=== PATIENT | female | born 1960 | race Caucasian/White ===

== ENCOUNTER 2017-01-16 11:16 | Inpatient (IN) ==
--- NOTE | 2017-01-16 11:28 | Emergency Department Note ---
Disposition Clinical Impression: Syncope due to orthostatic hypotension, Dehydration Chest pain Qualifiers: Chest pain type: unspecified Qualified Code(s): R07.9 - Chest pain, unspecified Disposition: Admitted As Inpatient Condition: Fair Referrals: Steph Garcia CNP [Primary Care Provider] - Time of Disposition: 14:19 Syncope HPI - General Chief Complaint: ED Syncope Stated Complaint: syncopal/hypotension Time Seen by Provider: 01/16/17 11:23 Source: patient Mode of arrival: EMS Limitations: no limitations Nursing Notes Reviewed: Yes Vital Signs Reviewed: Yes - History of Present Illness HPI Narrative: Patient is a 56-year-old female who presents to [facility] ED with chief complaint of low blood pressure, 2 syncopal episodes this morning as well as chest pain. She has had 5-6 episodes of vomiting this morning as well as 5 episodes of diarrhea. Denies any other sick contacts. No fevers or chills at home. No blood in the stool. Patient does complain of feeling lightheaded with standing. Patient was seen at [facility] to the urgent care where she was given a liter of fluids and remained hypotensive. She also took her blood pressure medications this morning Lisinopril 10mg as well. 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 Prodromal Symptoms: lightheaded, nausea/vomiting Witnessed: no Context: standing up Injuries Sustained Associated with Event: none Current Symptoms: none History: none Treatments prior to arrival: none Associated trauma secondary to event: No - Related Data Home Medications Medication Instructions Recorded Confirmed Meloxicam [Mobic] 02/08/16 Aspirin 81 mg PO DAILY 01/16/17 01/16/17 Atorvastatin [Lipitor] 10 mg PO HS 01/16/17 01/16/17 Isosorbide MONOnitrate (24 HR) 30 mg PO DAILY 01/16/17 01/16/17 [Imdur] Lisinopril [Zestril] 10 mg PO DAILY 01/16/17 01/16/17 Metoprolol [Lopressor] 25 mg PO BID 01/16/17 01/16/17 Allergies Allergy/AdvReac Type Severity Reaction Status Date / Time Iodinated Contrast Media - Allergy Hives Verified 01/16/17 14:14 Oral and Penicillins [PCN] Allergy Hives Verified 01/16/17 14:14 Sulfa (Sulfonamide Allergy See Verified 01/16/17 14:14 Antibiotics) Comments All systems ED: reviewed and negative except as stated. Past Medical History - Past Medical History Attestation: Yes The following information was validated with the patient. Source: patient Medical history: Reports: hyperlipidemia, hypertension - Social History Smoking Status: Current every day smoker Smokeless Tobacco Status: No Alcohol use: Reports: none Physical Exam - General Limitations: no limitations General appearance: alert, in no apparent distress - Head Head exam: atraumatic, normocephalic, normal inspection - Eye Eye exam: Present: normal appearance, PERRL, EOMI - ENT ENT exam: normal exam, normal oropharynx, mucous membranes moist - Neck Neck exam: Present: normal inspection, full ROM, trachea midline - Chest Chest inspection: Present: normal inspection, symmetric chest wall rise - Respiratory Respiratory exam: Present: normal lung sounds bilaterally - Cardiovascular Cardiovascular exam: Present: regular rate, normal rhythm, normal heart sounds - Abdominal Exam Abdominal exam: Present: soft, Non-Tender. Absent: tenderness, distention, guarding, rebound, rigidity - Extremities Exam Extremities exam: Present: normal inspection, full ROM. Absent: tenderness, pedal edema - Back Exam Back exam: Present: normal inspection, full ROM. Absent: tenderness - Neurological Exam Neurological exam: Present: alert, oriented X3 - Psychiatric Psychiatric exam: Present: normal affect, normal mood - Skin Skin exam: Present: warm, dry, intact, normal color Course Course Narrative: Patient seen and examined. Syncopal episode at 545 this morning after standing. She does not want to work and had a second syncopal episode. She also had an episode of chest pain in between the first and second syncopal episodes. Patient has also had multiple episodes of vomiting and diarrhea this morning. We will do orthostatic vital signs, given another liter fluid and cardiac workup. BP improved to 104 systolic from initial 70 systolic - Reevaluation(s) Reevaluation #1: Persistently hypotensive 80s/60s. 3rd L of IVF started. Spoke with hospitalist Dr. Lozano who accepted for admission. Time: 14:18 Vital Signs Temperature 97.8 F 01/16/17 11:19 Pulse Rate 64 01/16/17 11:19 Respiratory Rate 16 01/16/17 11:19 Blood Pressure 85/61 01/16/17 11:19 O2 Sat by Pulse Oximetry 100 01/16/17 11:19 Temperature 97.4 F L 01/16/17 14:04 Pulse Rate 61 01/16/17 14:04 Respiratory Rate 16 01/16/17 14:04 Blood Pressure 93/59 01/16/17 14:04 O2 Sat by Pulse Oximetry 99 01/16/17 14:04 Oxygen Delivery Oxygen Delivery Nasal Cannula Syncope - Medical Records Medical records reviewed: Yes I reviewed the patient's medical records. - Lab Data Lab results reviewed: Yes I reviewed the patient's lab results. Result diagrams: 01/16/17 11:43 01/16/17 11:43 Lab Results 01/16/17 01/16/17 01/16/17 Range/Units 11:43 11:43 11:43 WBC 11.8 H (4.3-11.1) K/mcL RBC 4.83 (3.82-4.97) M/mcL Hgb 14.4 (11.5-15.4) g/dL Hct 44.5 (35.3-44.9) % MCV 92.1 (83.0-100.0) fL MCH 29.8 (28.0-33.3) pg MCHC 32.4 (31.6-35.5) g/dL RDW 12.2 (11.5-14.5) % Plt Count 209 (140-400) K/mcL MPV 10.0 (9.4-12.4) fL Immature Gran % 0.3 (0-4) % Seg Neutrophils % 85.6 % Lymphocytes % 9.6 % Monocytes % 3.8 % Eosinophils % 0.2 % Basophils % 0.5 % Neutrophils # 10.1 H (1.6-8.9) K/mcL Lymphocytes # 1.1 (0.6-4.6) K/mcL Monocytes # 0.5 (0.0-1.3) K/mcL Eosinophils # 0.0 (0.0-0.6) K/mcL Basophils # 0.1 (0.0-0.2) K/mcL Sodium 139 (136-145) mEq/L Potassium 4.4 (3.5-4.5) mEq/L Chloride 111 H (98-109) mEq/L Carbon Dioxide 20 (19-29) mEq/L BUN 13 (7-20) mg/dL Creatinine 0.90 (0.57-1.11) mg/dL Est GFR ( Amer) > 60 (> 60) Est GFR (Non-Af Amer) > 60 (> 60) BUN/Creatinine Ratio 14 (6-26) Glucose 102 H (70-99) mg/dL Calculated Osmolality 288 (280-300) Calcium 8.8 (8.6-10.8) mg/dL Troponin I 0.01 (0-0.03) ng/mL - Radiology Data Radiology results reviewed: Yes I reviewed the patient's radiology results. - EKG Data EKG attestation: Yes I reviewed and interpreted this EKG. EKG results narrative: EKG done at 1129 shows normal sinus rhythm with a rate of 63 beats per minute. No acute ST elevation. There is some inverted T's waves in the anterior leads V1-V5
[2017-01-16] MEDS ORDERED: 0.9 % Sodium Chloride 1,000 ML IVC ONE ×2 (11:31→12:43)
--- NOTE | 2017-01-16 11:41 | Emergency Department Note ---
START Narrative - START START: I examined this patient and my medical decision-making was reviewed with the RESEARCH LEADER/PA/Advanced Practice Nurse/Resident Physician. I agree with the documented findings, disposition and treatment plan as described except to the extent set forth below. ED attending note: Patient seen with emergency medicine resident Dr. Rivas. Please see a copy of his note for details of the H&P, evaluation, management and disposition of this patient. We independently had [id number] contact with the patient Briefly: A 56-year-old female transferred from [facility]. Patient had a syncopal episode with resultant hypotension. Outpatient blood pressures come up after an IV fluid bolus. EKG done at [place] shows new T-wave inversions in the lateral leads. In consideration of the patient's presentation and history patient will get further workup and admission. We provided 45 minutes of critical care services this patient. Admission anticipated, patient stable.
[2017-01-16 11:50] LABS: Basophils # 0.1 K/mcL (0.0-0.2); Basophils % 0.5 %; Eosinophils % 0.2 %; Hematocrit 44.5 % (35.3-44.9); Hemoglobin 14.4 g/dL (11.5-15.4); Immature Granulocytes % 0.3 % (0-4); Lymphocytes # 1.1 K/mcL (0.6-4.6); Lymphocytes % 9.6 %; Mean Corpuscular HGB Conc 32.4 g/dL (31.6-35.5); Mean Corpuscular Hemoglobin 29.8 pg (28.0-33.3); Mean Corpuscular Volume 92.1 fL (83.0-100.0); Monocytes # 0.5 K/mcL (0.0-1.3); Monocytes % 3.8 %; Neutrophils # 10.1 K/mcL (1.6-8.9); Platelet Count 209 K/mcL (140-400); Red Blood Count 4.83 M/mcL (3.82-4.97); Red Cell Distribution Width 12.2 % (11.5-14.5); Segmented Neutrophils % 85.6 %
[2017-01-16 12:03] LABS: BUN/Creatinine Ratio 14 (6-26); Blood Urea Nitrogen 13 mg/dL (7-20); Calcium 8.8 mg/dL (8.6-10.8); Carbon Dioxide 20 mEq/L (19-29); Chloride 111 mEq/L (98-109); Glucose 102 mg/dL (70-99); Osmolality,Calculated 288 (280-300); Potassium 4.4 mEq/L (3.5-4.5); Sodium 139 mEq/L (136-145); eGFR For African Americans > 60 (> 60); eGFR For Non-African Americans > 60 (> 60)
[2017-01-16] MEDS ORDERED: Naloxone 0.4 MG/ML INJ IVP PRN (13:12)
[2017-01-16] MEDS ORDERED: Ondansetron 4 MG/2 ML VIAL IVP PRN (13:12)
--- NOTE | 2017-01-16 14:23 | Internal Med History&Physical ---
Date of Encounter: 01/16/17 Time of Encounter: 13:30 Assessment and Plan (1) Diarrhea Current visit: Yes Status: Acute likely viral gastroenteritis. WBC mildly elevated at 11.8. check c diff. Qualifiers: Diarrhea type: infectious Qualified Code(s): A09 - Infectious gastroenteritis and colitis, unspecified (2) Syncope Current visit: Yes Status: Acute secondary to hypotension from hypovolemia. IV fluids. Qualifiers: Syncope type: unspecified Qualified Code(s): R55 - Syncope and collapse (3) Hypotension Current visit: Yes Status: Acute secondary to GI losses from diarrhea and use of antihypertensive medication this morning. She woke up this morning at 3 AM because of loose stools, no blood. no abdominal pain. no fever. no urinary complaints. no chest pain. She continued to have diarrhea and developed some lightheadeness but still went to her job. She did take her dose of lisinopril 10 mg before leaving home. She went to [facility] urgent care and was found hypotensive SBP 80/40 and after receiving IL NS her BP was 77/34. She was transferred to our ED where her BP was 85/61. She received 2L NS and her current BP is 95/67. continue IV fluids. 1L 0.45%, then 75 ml.hr. check echocardiogram and serial troponin. Qualifiers: Hypotension type: other hypotension type Qualified Code(s): I95.89 - Other hypotension (4) Abnormal EKG Current visit: Yes Status: Acute EKG shows SR HR 63, TWI in V3-V6 (not present in EKG from March 2016). CXR shows no acute process. Echo from march 2016 shows LVEF 60%, moderate diastolic dysfunction, moderate MR. could be secondary to severe hypotension with transient cardiac ischemia. Patient had negative LHC in august 2016 at [place]. serial troponins. repeat EKG now. cardiac monitoring. check echocardiogram (5) Dehydration Current visit: Yes Status: Acute secondary to diarrhea. IV fluids. (6) HTN (hypertension) Current visit: Yes Status: Acute hold all home meds due to hypotension. Qualifiers: Hypertension type: essential hypertension Qualified Code(s): I10 - Essential (primary) hypertension (7) Tobacco abuse Current visit: No Status: Chronic counseled to quit. Internal Medicine - H&P: HPI Chief complaint: syncope this morning Admitted From: Home Plans for Post Hospital Care: Home History of present illness: Ms. Campbell Hall is a 56 year old female with past medical history of hypertension, CAD and hyperlipidemia. She woke up this morning at 3 AM because of loose stools, no blood. no abdominal pain. no fever. no urinary complaints. no chest pain. She continued to have diarrhea and developed some lightheadeness but still went to her job. She did take her dose of lisinopril 10 mg before leaving home. At her workplace, she had two syncopal episodes. Both times, her co- worker witnessed them. She lost consciousness for less than a minute. No post- confusion. After her second syncopal episode, she developed pre-cordial chest pressure. Since morning, she had at least 8 episodes of loose stools. no headache. She presented to [facility] urgent care and was found hypotensive SBP 80/40 and after receiving IL NS her BP was 77/34. She was transferred to our ED where her BP was 85/61. She received 2L NS and her current BP is 95/67. HR 60. Her only symptom now is lightheadedness. No chest pain. No palpitations. No abdominal pain. No nausea. no focal deficit. No bleeding. No urinary complaints. Patient is unclear why she takes so many medications. Past Med Surg Social Fam HX - Past Medical History Medical history: hyperlipidemia, hypertension - Social History Smoking Status: Current every day smoker Smokeless Tobacco Status: No Alcohol use: none Drug use: none - Family History Brother Hx Family Cardiac Disorders: Yes (htn, CAD) Internal Medicine - H&P: Meds Meloxicam [Mobic] 02/08/16 [History] MethylPREDNISolone [Medrol] 4 mg PO DAILY 6 Days 02/08/16 [Rx] Allergies Iodinated Contrast Media - Oral and Allergy (Verified 11/28/15 12:40) Hives Penicillins [PCN] Allergy (Verified 11/28/15 12:40) Hives Sulfa (Sulfonamide Antibiotics) Allergy (Verified 01/16/17 11:23) See Comments All Systems PM: A 10-system review of systems was performed and is negative for pertinent findings except as documented above in the HPI. - Constitutional Vitals: Temp Pulse Resp BP Pulse Ox 97.4 F L 61 16 93/59 99 01/16/17 14:04 01/16/17 14:04 01/16/17 14:04 01/16/17 14:04 01/16/17 14:04 General appearance: Present: cooperative, A&O X 3, pleasant, no acute distress, answers questions appropriately - Eye Eye exam: Present: PERRL, sclera anicteric - ENT ENT exam: Present: mucous membranes dry - Neck Neck exam general surgery: Present: supple, trachea midline. Absent: lymphadenopathy - Respiratory Respiratory exam: Present: CTAB - Cardiovascular Cardiovascular exam: Present: RRR - GI/Abdominal GI/Abdominal exam: Present: normal bowel sounds, soft. Absent: distended, tenderness - Extremities Exam Extremities exam: Absent: pedal edema - Back Exam Back exam: Absent: CVA tenderness (L), CVA tenderness (R) - Neurological Exam Neurological exam: Present: alert, oriented X3, strengths equal and symetr throughout. Absent: facial droop, speech deficit Internal Med - H&P Results - Labs CBC & Chem 7: 01/16/17 11:43 01/16/17 11:43
[2017-01-16] MEDS ORDERED: Magnesium Sulfate 1 GM in D5% in Water 100 ML IVPB ONE (19:47)
[2017-01-17] MEDS: Acetaminophen 325 MG TABLET PO PRN ×2 (00:25→16:14)
[2017-01-17 04:59] LABS: Basophils % 0.8 %; Eosinophils % 0.6 %; Hematocrit 35.8 % (35.3-44.9); Immature Granulocytes % 0.8 % (0-4); Lymphocytes # 1.4 K/mcL (0.6-4.6); Lymphocytes % 29.1 %; Mean Corpuscular HGB Conc 32.4 g/dL (31.6-35.5); Mean Corpuscular Hemoglobin 30.1 pg (28.0-33.3); Mean Corpuscular Volume 92.7 fL (83.0-100.0); Monocytes # 0.3 K/mcL (0.0-1.3); Monocytes % 5.5 %; Neutrophils # 3.1 K/mcL (1.6-8.9); Platelet Count 141 K/mcL (140-400); Red Blood Count 3.86 M/mcL (3.82-4.97); Red Cell Distribution Width 12.4 % (11.5-14.5); Segmented Neutrophils % 63.2 %
[2017-01-17 05:03] LABS: Hemoglobin 11.6 g/dL (11.5-15.4)
[2017-01-17 06:17] LABS: Alanine Aminotransferase 20 Units/L (0-55); Albumin 2.9 g/dL (3.5-5.0); Albumin/Globulin Ratio 1.3 (1.1-2.2); Alkaline Phosphatase 61 Units/L (38-126); Aspartate Amino Transferase 19 Units/L (5-34); BUN/Creatinine Ratio 14 (6-26); Bilirubin,Total 0.4 mg/dL (0.2-1.2); Blood Urea Nitrogen 12 mg/dL (7-20); Calcium 8.2 mg/dL (8.6-10.8); Carbon Dioxide 21 mEq/L (19-29); Chloride 111 mEq/L (98-109); Globulin 2.2 g/dL (2.4-3.5); Glucose 86 mg/dL (70-99); Magnesium 1.7 mg/dL (1.6-2.6); Osmolality,Calculated 287 (280-300); Phosphorous 3.3 mg/dL (2.3-4.7); Potassium 4.3 mEq/L (3.5-4.5); Sodium 139 mEq/L (136-145); Total Protein 5.1 g/dL (6.0-8.3); eGFR For African Americans > 60 (> 60); eGFR For Non-African Americans > 60 (> 60)
[2017-01-17] MEDS: Aspirin 81 MG TAB.CHEW PO SCH (08:09)
[2017-01-17] MEDS ORDERED: Ondansetron 4 MG/2 ML VIAL IVP PRN (08:12)
--- NOTE | 2017-01-17 08:18 | ECHO - Doppler Report ---
Echocardiogram Name: Rachana Coleman Date of Study: 01/16/2017 Date: 1960 Ht: 63.0 in Medical Record#: [id number] Age: 56 Wt: 129.0 lb Gender: Female BSA: 1.61 Order #: [id number] Location: [facility] Room #: [id number] Reading Physician: Unruly Boyd DO, FACClarissa, JACINTO TENORIO Medical Records Administrator: Beth Gay Ordering Physician: Cata Sparks MD Primary Physician: Steph Garcia NP Indications: Hypotension, TWI Impressions: LVEF 70%. Normal LV chamber size, wall thickness and function. Mild left ventricular diastolic dysfunction. Normal right ventricular structure and function. Borderline mild pulmonary hypertension. Estimated RVSP is 36 mmHg. No significant valvular dysfunction. Moderate MR described on prior report was not visualized on this study. Left Ventricular Wall Motion: Rest Echo Findings All wall segments showed normal motion. Findings: Study Quality * Technically adequate exam. ECG Findings * Normal sinus rhythm. Left Ventricle * LVEF 70%. * Normal LV chamber size, wall thickness and function. * Mild left ventricular diastolic dysfunction. Right Ventricle * Normal right ventricular structure and function. Left Atrium * Mildly dilated left atrium. Right Atrium * Normal right atrial size. Interatrial Septum * No evidence of PFO by color Doppler. Aortic Valve * Trileaflet aortic valve with normal function. * No aortic regurgitation. * No aortic stenosis. Mitral Valve * Mildly thickened mitral valve leaflets. * Trace mitral regurgitation. * No mitral stenosis. Tricuspid Valve * Normal tricuspid valve structure and function. * Trace tricuspid regurgitation. * Borderline mild pulmonary hypertension. * Estimated RVSP is 36 mmHg. * Estimated RA pressure is 5 mmHg. Pulmonic Valve * Normal pulmonic valve structure and function. * No pulmonic regurgitation. Aorta * Normally sized aortic root. Pericardium * The pericardium appears normal. IVC * Normal IVC dimensions and inspiratory collapse. Pulmonary Artery * Normal visualized portions of the main pulmonary artery. History Hypertension Hypercholesteremia History of Smoking Years 41 Packs 0.5 Family History of CAD 03/27/2016 a Previous Echo was performed. Measurements: BP: 103/ 68 2D Normal Values RVIDd: 2.00 cm <2.7 cm IVSd: .70 cm 0.6 - 1.0 cm LVIDd: 4.50 cm 3.7 - 5.6 cm LVPWd: .80 cm 0.6 - 1.1 cm LVIDs: 3.00 cm 1.5 - 3.6 cm AO: 2.70 cm < 4.0 cm LA: 3.00 cm 2.0 - 4.0cm %FS: 33.30 cm >25 % LA volume: 31 Mitral Valve Peak E:.94 m/sec Peak A:.94 m/sec E/A Ratio:1 Peak E' Lat Harrison:11.2 cm/s Peak E' Med Harrison:9.55 cm/s E/E' Lat Ratio:8.4 E/E' Med Ratio:9.9 Tricuspid Valve TV Regurg Peak Grad: 31.00mmHg TV Regurg Peak Harrison: 2.78m/sec Updated by Unruly Boyd DO, JENISE, COBY, JACINTO on 01/17/2017 8:14:10 AM electronically signed on 01/17/2017 8:14:25 AM with status of Final Wall Motion Joseph: 1=Normal, 2=Hypokinesis, 3=Akinesis, 4=Dyskinesis, 5=Aneurysmal, 6=Hyperkinetic, X=Not Visualized (Blank)=Missing
--- NOTE | 2017-01-17 09:51 | Internal Med Progress Note ---
Date of Encounter: 01/17/17 Time of Encounter: 08:45 - Assessment and plan (1) Diarrhea Current Visit: Yes Status: Acute Assessment and plan: Unclear etiology. Mild leukocytosis has resolved. In further discussion with the patient, patient stating she has 3-4 days every couple weeks for she has severe diarrhea. She states this is been occurring over the past couple months. Story more consistent with an IBS etiology then with infectious etiology but will rule out infectious causes. GI brought on board due to cyclical nature of the patient's symptoms. Chest x-ray negative, will obtain abdominal CT. ITS Impressions Chest X-Ray 01/16/17 11:30 IMPRESSION: No acute findings in the chest. D/ / Manuel Zavaleta MD / Manuel Zavaleta MD Interpreting Provider: Manuel Zavaleta MD Qualifiers: Diarrhea type: unspecified type Qualified Code(s): R19.7 - Diarrhea, unspecified (2) Syncope Current Visit: Yes Status: Acute Assessment and plan: Likely secondary to severe diarrhea and subsequent dehydration. Patient is stating she has bouts of 3-4 days worth of severe diarrhea that occur every week or 2 for the past several months. She states this is the first time she has ever passed out. Chest x-ray negative. Treating hypotension with IV fluids. Echocardiogram unremarkable. Qualifiers: Syncope type: unspecified Qualified Code(s): R55 - Syncope and collapse (3) Dehydration Current Visit: Yes Status: Acute (4) Hypomagnesemia Current Visit: Yes Status: Resolved (5) Hx of cholecystectomy Current Visit: Yes Status: Chronic Assessment and plan: in 1991 (6) Abnormal EKG Current Visit: Yes Status: Acute Assessment and plan: Echocardiogram unremarkable with ejection fraction of 70%. Patient denies chest pain or shortness of breath. Echocardiogram impressions: LVEF 70%. Normal LV chamber size, wall thickness and function. Mild left ventricular diastolic dysfunction. Normal right ventricular structure and function. Borderline mild pulmonary hypertension. Estimated RVSP is 36 mmHg. No significant valvular dysfunction. Moderate MR described on prior report was not visualized on this study. (7) HTN (hypertension) Current Visit: Yes Status: Chronic Assessment and plan: Inactive at this time, holding her antihypertensive medications. Holding lisinopril 10 mg daily, metoprolol 25 mg twice a day, Imdur 30 mg daily. Will add back once her blood pressure is more stabilized. Qualifiers: Hypertension type: essential hypertension Qualified Code(s): I10 - Essential (primary) hypertension (8) Hypotension Current Visit: Yes Status: Acute Assessment and plan: Stable, continue IV fluids. We will continue to monitor. Patient is alert and oriented 3. She was instructed on slow position changes. Qualifiers: Hypotension type: other hypotension type Qualified Code(s): I95.89 - Other hypotension (9) Tobacco abuse Current Visit: No Status: Chronic - Subjective Interval history: Patient seen and examined. On examination, patient is sitting upright in bed. Patient had eaten several bites of her breakfast. She is endorsing decreased by mouth intake. She denies nausea or vomiting. She denies pain at this time but states her abdomen is diffusely sore. She states that she is still having active diarrhea with several episodes since admission. - Constitutional Vitals: Temp Pulse Resp BP Pulse Ox 98.3 F 74 15 102/70 91 L 01/17/17 06:45 01/17/17 06:45 01/17/17 06:45 01/17/17 06:45 01/17/17 06:45 General appearance: Present: cooperative, A&O X 3, pleasant, no acute distress, answers questions appropriately - Head Head exam: Present: atraumatic, normocephalic - Eye Eye exam: Present: PERRL, conjuntiva pink, sclera anicteric Pupils: Present: PERRL - Neck Neck exam general surgery: Present: supple, trachea midline. Absent: lymphadenopathy - Respiratory Respiratory exam: Present: decreased breath sounds. Absent: accessory muscle use, rales, respiratory distress, rhonchi, wheezes - Cardiovascular Cardiovascular exam: Present: RRR, +S1, +S2. Absent: diastolic murmur, gallop, rubs, systolic murmur - GI/Abdominal GI/Abdominal exam: Present: distended, hyperactive bowel sounds, soft, tenderness (diffuse), no peritoneal signs - Extremities Exam Extremities exam: Present: warm, radial pulses palpable and symetrical. Absent : calf tenderness, cyanotic, pedal edema - Neurological Exam Neurological exam: Present: alert, CN II-XII intact, oriented X3, no focal deficits, strengths equal and symetr throughout. Absent: pronater drift, facial droop, speech deficit - Skin Skin exam: Present: dry, intact, pallor, warm Internal Medicine: Result - Labs CBC & Chem 7: 01/17/17 04:35 01/17/17 04:35 Labs: Short CBC 01/17/17 Range/Units 04:35 WBC 4.9 D (4.3-11.1) K/mcL Hgb 11.6 D (11.5-15.4) g/dL Hct 35.8 (35.3-44.9) % Plt Count 141 (140-400) K/mcL Neutrophils # 3.1 (1.6-8.9) K/mcL BMP 01/17/17 04:35 Sodium 139 Potassium 4.3 Chloride 111 H Carbon Dioxide 21 BUN 12 Creatinine 0.86 Glucose 86 Calcium 8.2 L Cardiac Enzymes 01/16/17 01/17/17 Range/Units 18:42 04:35 Troponin I 0.00 0.01 (0-0.03) ng/mL Liver Function 01/17/17 Range/Units 04:35 Total Bilirubin 0.4 (0.2-1.2) mg/dL AST 19 (5-34) Units/L ALT 20 (0-55) Units/L Alkaline Phosphatase 61 (38-126) Units/L Albumin 2.9 L (3.5-5.0) g/dL Consult Discharge Plan - Plan Referrals: Steph Garcia, HEALTH ANALYTICS CONSULTANT [Primary Care Provider] -
[2017-01-17] MEDS ORDERED: Hyoscyamine 0.5 MG/ML MLS IVP PRN (10:30)
[2017-01-17 11:33] LABS: Adenovirus F 40/41 PCR Not detected (Not detect); Astrovirus PCR Not detected (Not detect); C.difficile Toxin A/B by PCR Not detected (Not detect); Campylobacter by PCR Not detected (Not detect); Cryptosporidium by PCR Not detected (Not detect); Cyclospora cayetanensis PCR Not detected (Not detect); E. coli O157 by PCR Not detected (Not detect); Entamoeba histolytica PCR Not detected (Not detect); Enteroaggregative E.coli(EAEC) Not detected (Not detect); Enteropathogenic E.coli(EPEC) Not detected (Not detect); Enterotoxigenic E.coli (ETEC) Not detected (Not detect); Giardia lamblia PCR Not detected (Not detect); Norovirus GI/GII PCR Not detected (Not detect); Plesiomonas shigelloides PCR Not detected (Not detect); Rotavirus A PCR ***DETECTED*** (Not detect); Salmonella PCR Not detected (Not detect); Sapovirus PCR Not detected (Not detect); Shig/EnteroinvasiveE coli EIEC Not detected (Not detect); Shigalike tox-prod E coli STEC Not detected (Not detect); Vibrio PCR Not detected (Not detect); Vibrio cholerae PCR Not detected (Not detect); Yersinia enterocolitica PCR Not detected (Not detect)
--- NOTE | 2017-01-17 11:45 | Gastroenterology Consult Note ---
<Steffany Parada - Last Filed: 01/17/17 11:42> Date of Encounter: 01/17/17 Time of Encounter: 10:30 - Assessment and plan (1) Nausea & vomiting Current Visit: Yes Status: Chronic Assessment and plan: symptomatic management, OTPT EGD Qualifiers: Vomiting type: unspecified Vomiting Intractability: unspecified Qualified Code(s): R11.2 - Nausea with vomiting, unspecified (2) Dysphagia Current Visit: Yes Status: Acute Assessment and plan: OTPT EGD to evaluate. Continue PPI Qualifiers: Dysphagia type: other dysphagia Qualified Code(s): R13.19 - Other dysphagia (3) Diarrhea Current Visit: Yes Status: Chronic Assessment and plan: stool w/u. symptomatic care. OTPT Cscope. Qualifiers: Diarrhea type: unspecified type Qualified Code(s): R19.7 - Diarrhea, unspecified - Time Spent With Patient Total time spent is greater than 50% in coordination of care (as documented) at patient's floor/unit and/or counseling patient: less than 15 minutes GI History of Present Illness - Data of Consult Patient: new to practice Consult date: 01/17/17 Requesting Physician: Shellie Daniel - Consult Narrative Reason for consult: N/V/D History of present illness: Ms. Coleman is a 56 year old female with past medical history of hypertension, CAD and hyperlipidemia. She woke up this morning at 3 AM because of loose stools, no blood. no abdominal pain. no fever. no urinary complaints. no chest pain. She continued to have diarrhea and developed some lightheadeness but still went to her job. She did take her dose of lisinopril 10 mg before leaving home. At her workplace, she had two syncopal episodes. Both times, her co- worker witnessed them. She lost consciousness for less than a minute. No post- confusion. After her second syncopal episode, she developed pre-cordial chest pressure. Since morning, she had at least 8 episodes of loose stools. no headache. She presented to [facility] urgent care and was found hypotensive SBP 80/40 and after receiving IL NS her BP was 77/34. She was transferred to our ED where her BP was 85/61. She received 2L NS and her current BP is 95/67. HR 60. Her only symptom now is lightheadedness. Patient indicates that she has had cyclical N/V/D symptoms for 3-4 days two times monthly for many months preceding this hospitalization. She has some dysphagia with solids, particularly breads. Denies acid reflux symptoms. Symptoms are not necessarily associated with food. She can be awoken in the night with these symptoms, admits BRBPR on paper. Weight is stable, fluctuates. Denies family hx of CC. Colonoscopy: None EGD: None Past Med Surg Social Fam HX - Past Medical History Medical history: hyperlipidemia, hypertension - Social History Smoking Status: Current every day smoker Smokeless Tobacco Status: No Alcohol use: none Drug use: none - Family History Brother Hx Family Cardiac Disorders: Yes (pacemaker) - Gastrointestinal NSAID use: None Anticoagulation Use: None Number of BM Per Day: varies Gastrointestinal: Present: abdominal pain, diarrhea, nausea, vomiting - Constitutional Constitutional: anorexia - EENT Eyes: as per HPI Ears: Present: as per HPI Nose, mouth and throat: Present: dysphagia - Cardiovascular Cardiovascular ROS: Present: chest pain - Respiratory Respiratory IM: Present: cough - Neurological ROS Neurological GI: Present: dizziness - Hematologic/Lymphatic Hematologic/Lymphatic pediatric: Present: as per HPI - Musculoskeletal Musculoskeletal ROS GI: Present: as per HPI - Integumentary Integumentary GI: Present: as per HPI - Psychiatric ROS Psychiatric GI: Present: as per HPI - Endocrine Endocrine IM: Present: as per HPI - Constitutional Vitals: Temp Pulse Resp BP Pulse Ox 98.3 F 74 15 102/70 91 L 01/17/17 06:45 01/17/17 06:45 01/17/17 06:45 01/17/17 06:45 01/17/17 06:45 General appearance: Present: cooperative, A&O X 3, no acute distress, answers questions appropriately - Head Head exam: Present: atraumatic, normocephalic - Eye Eye exam: Present: normal appearance, sclera anicteric - ENT ENT exam: Present: mucous membranes moist - Neck Neck exam general surgery: Present: normal inspection, trachea midline - Respiratory Respiratory exam: Present: CTAB - Cardiovascular Cardiovascular exam: Present: RRR, +S1, +S2 - GI/Abdominal GI/Abdominal exam: Present: soft, tenderness, no peritoneal signs - Rectal Rectal exam: Present: deferred - Extremities Exam Extremities exam: Present: warm - Neurological Exam Neurological exam: Present: no focal deficits - Psychiatric Psychiatric exam: Present: normal affect, normal mood - Skin Skin exam: Present: dry, intact, normal color, warm Results - Labs CBC & Chem 7: 01/17/17 04:35 01/17/17 04:35 Labs: Last Result Calcium 8.2 mg/dL (8.6-10.8) L 01/17/17 04:35 Troponin I 0.01 ng/mL (0-0.03) 01/17/17 04:35 Entire Visit Hgb 11.6 g/dL (11.5-15.4) D 01/17/17 04:35 Hct 35.8 % (35.3-44.9) 01/17/17 04:35 Total Bilirubin 0.4 mg/dL (0.2-1.2) 01/17/17 04:35 AST 19 Units/L (5-34) 01/17/17 04:35 ALT 20 Units/L (0-55) 01/17/17 04:35 Consult Discharge Plan - Plan Referrals: Steph Garcia, CRAYON GRADER [Primary Care Provider] - <Radha Denise - Last Filed: 01/17/17 21:54> Date of Encounter: 01/17/17 - Time Spent With Patient Total time spent is greater than 50% in coordination of care (as documented) at patient's floor/unit and/or counseling patient: GI History of Present Illness - Data of Consult Requesting Physician: Shellie Daniel - Consult Narrative History of present illness: Ms. Coleman is a 56 year old female - Constitutional Vitals: Temp Pulse Resp BP Pulse Ox 99.8 F H 81 15 107/73 93 L 01/17/17 19:06 01/17/17 19:06 01/17/17 19:06 01/17/17 19:06 01/17/17 21:00 Results - Labs CBC & Chem 7: 01/17/17 04:35 01/17/17 04:35 Labs: Last Result Calcium 8.2 mg/dL (8.6-10.8) L 01/17/17 04:35 Troponin I 0.01 ng/mL (0-0.03) 01/17/17 04:35 Stool Occult Blood Positive (Negative) A 01/17/17 09:00 Entire Visit Hgb 11.6 g/dL (11.5-15.4) D 01/17/17 04:35 Hct 35.8 % (35.3-44.9) 01/17/17 04:35 Total Bilirubin 0.4 mg/dL (0.2-1.2) 01/17/17 04:35 AST 19 Units/L (5-34) 01/17/17 04:35 ALT 20 Units/L (0-55) 01/17/17 04:35 - Attending Attestation I examined this patient and my medical decision-making was reviewed with the MULTIPLE SPINDLE SCREW MACHINE OPERATOR/PA/Advanced Practice Nurse/Resident Physician. I agree with the documented findings, disposition and treatment plan as described except to the extent set forth below.
[2017-01-17] MEDS ORDERED: Metoclopramide 10 MG/2 ML VIAL IVP SCH (12:00)
--- NOTE | 2017-01-17 17:13 | Electrocardiograph Report ---
[address] [place] [address] Test Date: 2017-01-16 Pat Name: Rachana Coleman Department: 105 Room: 3B33 Gender: F Program Administrator: : 1960 Requested By: Cata Sparks Order Number: [id number] Reading MD: Vivi Gerber Measurements Intervals [place] Rate: 63 P: 66 TN: 151 QRS: 65 QRSD: 79 T: 125 QT: 401 QTc: 409 Interpretive Statements SINUS RHYTHM MODERATE T-WAVE ABNORMALITY, CONSIDER ANTERIOR ISCHEMIA Electronically Signed On 01-17-2017 17:11:13 EST by Vivi Gerber
--- NOTE | 2017-01-17 17:16 | Electrocardiograph Report ---
[address] [place], [place] [address] Test Date: 2017-01-16 Pat Name: Rachana Coleman Department: 113 Room: 3B33 Gender: F Intelligence Chief: : 1960 Requested By: Mattie Rivas Order Number: [id number] Reading MD: Vivi Gerber Measurements Intervals [place] Rate: 57 P: 64 FL: 157 QRS: 76 QRSD: 90 T: 133 QT: 451 QTc: 446 Interpretive Statements SINUS BRADYCARDIA MODERATE T-WAVE ABNORMALITY, CONSIDER ANTERIOR ISCHEMIA Electronically Signed On 01-17-2017 17:14:47 EST by Vivi Gerber
[2017-01-18] MEDS: Acetaminophen 325 MG TABLET PO PRN (03:25)
[2017-01-18 03:48] LABS: Basophils % 0.4 %; Eosinophils % 0.4 %; Hematocrit 38.4 % (35.3-44.9); Hemoglobin 12.9 g/dL (11.5-15.4); Immature Granulocytes % 0.2 % (0-4); Lymphocytes # 1.1 K/mcL (0.6-4.6); Lymphocytes % 24.1 %; Mean Corpuscular HGB Conc 33.6 g/dL (31.6-35.5); Mean Corpuscular Hemoglobin 30.4 pg (28.0-33.3); Mean Corpuscular Volume 90.6 fL (83.0-100.0); Mean Platelet Volume 10.2 fL (9.4-12.4); Monocytes # 0.4 K/mcL (0.0-1.3); Neutrophils # 3.1 K/mcL (1.6-8.9); Platelet Count 151 K/mcL (140-400); Red Blood Count 4.24 M/mcL (3.82-4.97); Segmented Neutrophils % 66.9 %
[2017-01-18 04:04] LABS: BUN/Creatinine Ratio 11 (6-26); Blood Urea Nitrogen 9 mg/dL (7-20); Calcium 8.4 mg/dL (8.6-10.8); Carbon Dioxide 20 mEq/L (19-29); Chloride 108 mEq/L (98-109); Glucose 82 mg/dL (70-99); Magnesium 1.4 mg/dL (1.6-2.6); Osmolality,Calculated 282 (280-300); Potassium 3.7 mEq/L (3.5-4.5); Sodium 137 mEq/L (136-145); eGFR For African Americans > 60 (> 60); eGFR For Non-African Americans > 60 (> 60)
--- NOTE | 2017-01-18 09:22 | Internal Med Progress Note ---
Date of Encounter: 01/18/17 Time of Encounter: 09:20 - Assessment and plan (1) Diarrhea Current Visit: Yes Status: Chronic Assessment and plan: Syncopal episode likely secondary to hypotension/severe dehydration due to acute diarrhea from acute infection with rotavirus Still having lots of watery diarrhea and mild hypotension Continue IV fluids and supportive care Chest X-Ray 01/16/17 11:30 IMPRESSION: No acute findings in the chest. D/ / Manuel Zavaleta MD / Manuel Zavaleta MD Interpreting Provider: Manuel Zavaleta MD May discharge in the morning if stable, as the patient's blood pressure was in the 70s prior to admission Qualifiers: Diarrhea type: unspecified type Qualified Code(s): R19.7 - Diarrhea, unspecified (2) Syncope Current Visit: Yes Status: Acute Assessment and plan: Likely secondary to severe diarrhea and subsequent dehydration. Patient is stating she has bouts of 3-4 days worth of severe diarrhea that occur every week or 2 for the past several months. She stated this was the first time she has ever passed out. Chest x-ray negative. Echocardiogram unremarkable. Qualifiers: Syncope type: unspecified Qualified Code(s): R55 - Syncope and collapse (3) Hypotension Current Visit: Yes Status: Acute Assessment and plan: Secondary to severe dehydration Stable, continue IV fluids. Qualifiers: Hypotension type: other hypotension type Qualified Code(s): I95.89 - Other hypotension (4) HTN (hypertension) Current Visit: Yes Status: Chronic Assessment and plan: Holding lisinopril 10 mg daily, Gypsy metoprolol 25 mg twice a day, Imdur 30 mg daily. Qualifiers: Hypertension type: essential hypertension Qualified Code(s): I10 - Essential (primary) hypertension (5) Hypomagnesemia Current Visit: Yes Status: Resolved Assessment and plan: Replete and recheck in the morning (6) Tobacco abuse Current Visit: No Status: Chronic Assessment and plan: Smoking cessation counseling given for 5 minutes. Nicotine patch offered - Time Spent With Patient Greater than 35 minutes - Subjective Interval history: Patient is to having watery diarrhea, mild cramping on and off. Denies any fevers, no chest pain, no shortness of breath. No dysuria no blood diarrhea. - Constitutional Vitals: Temp Pulse Resp BP Pulse Ox 98.8 F 68 17 94/60 91 L 01/18/17 07:40 01/18/17 07:40 01/18/17 07:40 01/18/17 07:40 01/18/17 07:40 General appearance: Present: cooperative, A&O X 3, pleasant, no acute distress, answers questions appropriately - Head Head exam: Present: atraumatic, normocephalic - Eye Eye exam: Present: PERRL, conjuntiva pink, sclera anicteric Pupils: Present: PERRL - Neck Neck exam general surgery: Present: supple, trachea midline. Absent: lymphadenopathy - Respiratory Respiratory exam: Present: CTAB. Absent: accessory muscle use, rales, rhonchi, wheezes - Cardiovascular Cardiovascular exam: Present: RRR, +S1, +S2. Absent: diastolic murmur, gallop, rubs, systolic murmur - GI/Abdominal GI/Abdominal exam: Present: hyperactive bowel sounds, soft, no peritoneal signs. Absent: distended, normal bowel sounds, tenderness - Extremities Exam Extremities exam: Present: warm, radial pulses palpable and symetrical. Absent : calf tenderness, cyanotic, pedal edema - Neurological Exam Neurological exam: Present: CN II-XII intact, oriented X3, no focal deficits. Absent: pronater drift, facial droop, speech deficit - Skin Skin exam: Present: dry, intact Internal Medicine: Result - Labs CBC & Chem 7: 01/18/17 03:11 01/18/17 03:11 Labs: Short CBC 01/18/17 Range/Units 03:11 WBC 4.7 (4.3-11.1) K/mcL Hgb 12.9 (11.5-15.4) g/dL Hct 38.4 (35.3-44.9) % Plt Count 151 (140-400) K/mcL Neutrophils # 3.1 (1.6-8.9) K/mcL BMP 01/18/17 03:11 Sodium 137 Potassium 3.7 Chloride 108 Carbon Dioxide 20 BUN 9 Creatinine 0.81 Glucose 82 Calcium 8.4 L - VTE Documentation of Mechanical Device: Intermittent pneumatic compression device Consult Discharge Plan - Plan Referrals: Steph Garcia, RIVET HOLE PUNCHER [Primary Care Provider] -
[2017-01-18] MEDS ORDERED: Nicotine 21 MG PATCH.TD24 TD SCH (09:30)
[2017-01-18] MEDS ORDERED: Isosorbide MONOnitrate (24 HR) 30 MG TAB.ER.24H PO SCH (09:30)
[2017-01-18] MEDS: Magnesium Oxide 400 MG TABLET PO SCH ×2 (09:32→21:51)
[2017-01-18] MEDS: Aspirin 81 MG TAB.CHEW PO SCH (09:32)
[2017-01-19 06:58] VITALS: BP 104/69
[2017-01-19 07:29] LABS: BUN/Creatinine Ratio 12 (6-26); Blood Urea Nitrogen 9 mg/dL (7-20); Carbon Dioxide 22 mEq/L (19-29); Chloride 107 mEq/L (98-109); Glucose 73 mg/dL (70-99); Magnesium 1.2 mg/dL (1.6-2.6); Osmolality,Calculated 283 (280-300); Potassium 3.5 mEq/L (3.5-4.5); Sodium 138 mEq/L (136-145); eGFR For African Americans > 60 (> 60); eGFR For Non-African Americans > 60 (> 60)
--- NOTE | 2017-01-19 07:50 | Discharge Summary ---
Date of Encounter: 01/19/17 Time of Encounter: 07:46 - Discharge Diagnosis (1) Diarrhea Priority: Primary Status: Chronic Comments: Syncopal episode likely secondary to hypotension/severe dehydration due to acute diarrhea from acute viral gastroenteritis/ infection with rotavirus Qualifiers: Diarrhea type: unspecified type Qualified Code(s): R19.7 - Diarrhea, unspecified (2) Syncope Priority: Primary Status: Acute Qualifiers: Syncope type: unspecified Qualified Code(s): R55 - Syncope and collapse (3) Hypotension Priority: Primary Status: Acute Qualifiers: Hypotension type: other hypotension type Qualified Code(s): I95.89 - Other hypotension (4) HTN (hypertension) Priority: Secondary Status: Chronic Qualifiers: Hypertension type: essential hypertension Qualified Code(s): I10 - Essential (primary) hypertension (5) Hypomagnesemia Priority: Secondary Status: Resolved (6) Tobacco abuse Priority: Secondary Status: Chronic - Discharge Medications Prescriptions: Ondansetron ODT [Zofran ODT] 4 mg SL Q4HR #30 tab.rapdis Magnesium Oxide [Mag-Ox] 400 mg PO DAILY 30 Days Home Medications: Meloxicam [Mobic] 15 mg PO DAILY 02/08/16 [History] Aspirin 81 mg PO DAILY 01/16/17 [History] Atorvastatin [Lipitor] 10 mg PO HS 01/16/17 [History] Isosorbide MONOnitrate (24 HR) [Imdur] 30 mg PO DAILY 01/16/17 [History] Lisinopril [Zestril] 10 mg PO DAILY 01/16/17 [History] Metoprolol [Lopressor] 25 mg PO BID 01/16/17 [History] Magnesium Oxide [Mag-Ox] 400 mg PO DAILY 30 Days 01/19/17 [Rx] Ondansetron ODT [Zofran ODT] 4 mg SL Q4HR #30 tab.rapdis 01/19/17 [Rx] Allergies/Adverse Reactions: Allergies Iodinated Contrast Media - Oral and Allergy (Verified 01/16/17 14:14) Hives Penicillins [PCN] Allergy (Verified 01/16/17 14:14) Hives Sulfa (Sulfonamide Antibiotics) Allergy (Verified 01/16/17 14:14) See Comments Date of admission: 01/17/17 15:09 Primary care physician: Steph Garcia CNP - Patient Status Disposition: Home, Self-Care Condition: Good Overall status at discharge: patient is progressing back to baseline - Discharge Instructions Follow Up With: Steph Garcia CNP [Primary Care Provider] - Additional Instructions: Follow with primary care physician within the next 7 days. Did not come back to work for the next 10 days or until symptoms have resolved and have discussed her return with her primary care physician. Continue magnesium oral once daily. Can use Zofran as needed for nausea. Quit smoking. Follow with GI within the next 3-4 weeks to schedule an endoscopy and a colonoscopy - Diet and Activity Activity: increase activity as tolerated Diet: low fat, low cholesterol (Low fat , low lactose) Hospital course: Ms. Coleman is a 56 year old female with past medical history of hypertension, CAD, irritable bowel syndrome and hyperlipidemia. Was complaining of loose stools, no blood, no urinary complaints, no chest pain. She continued to have diarrhea and developed some lightheadeness but still went to work. She did take her dose of lisinopril 10 mg before leaving home. At her workplace, she had two syncopal episodes. Both times, her co-worker witnessed them. She lost consciousness for less than a minute. After her second syncopal episode, she developed pre-cordial chest pressure. Since morning, she had at least 8 episodes of loose stools. She presented to [facility] urgent care and was found hypotensive SBP 80/40 and after receiving IL NS her BP was 77/34. She was transferred to our ED where her BP was 85/61. The patient was running fevers up to 101.7, she was found to be positive for rotavirus A. The patient was given IV fluids and her blood pressure medications were held including Lopressor, Imdur and lisinopril. Her magnesium was found to be low and was repleted, the patient is having less loose bowel movements, her blood pressure has been in the high 90s and low 100 100s but she says at baseline she has loose stools because of irritable bowel syndrome. Patient was evaluated by them GI service recommended an outpatient endoscopy and colonoscopy when her symptoms have improved. 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 Time spent discussing smoking cessation with patient: 3 to 10 minutes - Time Spent with Patient Total time spent providing and/or coordinating discharge services: Greater than 30 minutes (40 min) - Constitutional Vitals: Temp Pulse Resp BP Pulse Ox 98.5 F 71 16 104/69 92 L 01/19/17 06:53 01/19/17 06:53 01/19/17 06:53 01/19/17 06:53 01/19/17 06:53 General appearance: Present: cooperative, A&O X 3, pleasant, no acute distress, answers questions appropriately - Head Head exam: Present: atraumatic, normocephalic - Eye Eye exam: Present: PERRL, conjuntiva pink, sclera anicteric Pupils: Present: PERRL - Neck Neck exam general surgery: Present: supple, trachea midline. Absent: lymphadenopathy - Respiratory Respiratory exam: Present: CTAB. Absent: accessory muscle use, rales, rhonchi, wheezes - Cardiovascular Cardiovascular exam: Present: RRR, +S1, +S2. Absent: diastolic murmur, gallop, rubs, systolic murmur - GI/Abdominal GI/Abdominal exam: Present: normal bowel sounds, soft, no peritoneal signs. Absent: distended, tenderness - Extremities Exam Extremities exam: Present: warm, radial pulses palpable and symetrical. Absent : calf tenderness, cyanotic, pedal edema - Neurological Exam Neurological exam: Present: CN II-XII intact, oriented X3, no focal deficits. Absent: pronater drift, facial droop, speech deficit - Skin Skin exam: Present: dry, intact - VTE Documentation of Mechanical Device: Intermittent pneumatic compression device
== END 2017-01-19 09:15 | disposition home or self-care (01) | DRG 249 ==
LOC: 3BNU 11:16 → EMEROO 11:16 → 3BNU 13:34 → SUATTDRO 01-17 15:09
PROVIDERS: ADMIT Nurse Practitioner Family; ATTEND Internal Medicine

== ENCOUNTER 2018-05-19 13:16 | Observation (INO) ==
[2018-05-19] MEDS ORDERED: Naloxone 0.4 MG/ML INJ IVP PRN (14:10)
[2018-05-19] MEDS ORDERED: Acetaminophen 325 MG TABLET PO PRN (14:10)
[2018-05-19] MEDS ORDERED: Nitroglycerin 0.4 MG TAB.SUBL SL PRN (14:32)
--- NOTE | 2018-05-19 15:34 | Internal Med History&Physical ---
<Dustin Robb - Last Filed: 05/19/18 23:33> Date of Encounter: 05/19/18 Time of Encounter: 13:30 Internal Medicine - H&P: HPI Chief complaint: Chest pain Admitted From: Intrahospital Transfer Plans for Post Hospital Care: Home History of present illness: Ms. Coleman is a 57 year old female w/PMH of CAD, HLD, HTN, and current tobacco use presents from [place] [facility] w/CC of chest pain that began yesterday and resolved but returned this morning patient was at rest. Patient reports pinching sensation in the center of her chest that progressed to severe pressure with radiation to her back, left shoulder, neck. Sx lasted approx 15 minutes then lessened. Accompanied by SOB, diaphoresis, nausea, vomiting. Patient also reports fatigue for one month. Reports stress at home w/family and SO. Also reports suicidal ideations w/last 8 months ago when she planned on hanging herself. States she had heart cath at [facility] in August 2016 but no stents. Reports last stress test in 2014. Pt. reports left leg weakness and hx of falls but denies recent illness, fever, chills, changes in vision, unusual bleeding, palpitations, abdominal pain, diarrhea, constipation, numbness, tingling, dizziness, lightheadedness, pre-syncope, or syncope. Past Med Surg Social Fam HX - Past Medical History Source: patient, old records reviewed Medical history: coronary artery disease, hyperlipidemia, hypertension Additional medical history: Heart cath 09/15 Psychiatric history: anxiety, depression - Past Surgical History Surgical History: cholecystectomy, hysterectomy (Total) - Social History Smoking Status: Current every day smoker Packs per day: 6-8 menthols per day Smokeless Tobacco Status: No Alcohol use: none Drug use: none Occupational status: employed Current living situation: Home, With Family Activity Level: Independent ambulation (Has difficulty w/left leg weakness. Reports sometimes having to drag her foot/leg.) Recent Out of Country Travel Within the Last 8 Weeks: No Exposure or Possible Exposure to Illness During Travel: No - Family History Brother Race: Family Member Ethnicity: Non- Living Status: Age at : 75 Cause of : CVA Hx Family Cardiac Disorders: Yes (CAD) Mother Race: Family Member Ethnicity: Non- Living Status: Age at : 86 Cause of : M I Hx Family Cardiac Disorders: Yes ([place], Pacemaker) Father Race: Family Member Ethnicity: Non- Living Status: Age at : 65 Cause of : [place]/Pneumonia Hx Family Cardiac Disorders: Yes ([place], CAD) Sister Race: Family Member Ethnicity: Non- Living Status: Still Living Hx Family Cardiac Disorders: Yes (CAD, Pacemaker) Hx Family Cancer: Yes Internal Medicine - H&P: Meds Aspirin 81 mg PO DAILY 05/19/18 [History] Gabapentin [Neurontin] 400 mg PO TID 05/19/18 [History] 3 Allergy/AdvReac Type Severity Reaction Status Date / Time Iodinated Contrast- Oral and Allergy Hives Verified 05/01/17 13:14 IV Dye Penicillins [PCN] Allergy Hives Verified 05/01/17 13:14 Sulfa (Sulfonamide Allergy See Verified 05/01/17 13:14 Antibiotics) Comments All Systems PM: A 10-system review of systems was performed and is negative for pertinent findings except as documented above in the HPI. - Constitutional Constitutional: as per HPI, fatigue, falls, weakness, no chills, no fever(s), no night sweats - EENT Eyes: no change in vision, no discharge, no pain, no photophobia Ears: no ear discharge, no ear pain, no tinnitus Nose, mouth and throat: no dysphagia, no nasal discharge, no neck pain, no sore throat - Breasts Breasts: as per HPI - Cardiovascular Cardiovascular ROS IM: as per HPI, diaphoresis, dyspnea, dyspnea on exertion, no chest pain, no lightheadedness, no palpitations, no syncope - Respiratory Respiratory: as per HPI, dyspnea, dyspnea on exertion, no cough, no wheezing, no excessive phlegm production - Gastrointestinal Gastrointestinal: nausea, vomiting, no abdominal pain, no diarrhea, no hematemesis, no hematochezia, no melena - Genitourinary Genitourinary: no change in urinary stream, no dysuria, no flank pain, no hematuria Menstruation: as per HPI - Musculoskeletal Musculoskeletal ROS IM: as per HPI, no numbness, no tingling - Integumentary Integumentary IM: as per HPI, sores (Left lower arm), no rash, no unusual bruising - Neurological Neurological ROS: no confusion, no convulsions, no focal weakness, no numbness, no tingling, no tremor(s) - Psychiatric Psychiatric: as per HPI, anxiety, depression, suicidal ideation (8 months ago d/ t stress in life) - Endocrine Endocrine IM: as per HPI - Hematologic/Lymphatic Hematologic/Lymphatic: no easy bruising - Allergic/Immunologic Allergic/Immunologic: as per HPI - Constitutional Vitals: Temp Pulse Resp BP Pulse Ox 97.7 F 57 16 131/85 99 05/19/18 14:30 05/19/18 14:30 05/19/18 14:30 05/19/18 14:30 05/19/18 14:30 General appearance: Present: cooperative, mild distress, A&O X 3, pleasant, answers questions appropriately - Head Head exam: Present: atraumatic, normocephalic - Eye Eye exam: Present: PERRL, conjuntiva pink, sclera anicteric Pupils: Present: PERRL - ENT ENT exam: Present: normal exam - Neck Neck exam general surgery: Present: normal inspection, supple, trachea midline. Absent: lymphadenopathy - Respiratory Respiratory exam: Present: CTAB. Absent: accessory muscle use, rales, rhonchi, wheezes - Cardiovascular Cardiovascular exam: Present: RRR, +S1, +S2. Absent: diastolic murmur, gallop, rubs, systolic murmur - GI/Abdominal GI/Abdominal exam: Present: normal bowel sounds, soft, no peritoneal signs. Absent: distended, tenderness - Rectal Rectal exam: Present: deferred - Additional comments: exam deferred. - Extremities Exam Extremities exam: Present: warm, radial pulses palpable and symmetrical. Absent : calf tenderness, cyanotic, pedal edema - Back Exam Back exam: Present: normal inspection - Neurological Exam Neurological exam: Present: CN II-XII intact, oriented X3, no focal deficits. Absent: pronater drift, facial droop, speech deficit - Psychiatric Psychiatric exam: Present: anxious (D/T stress) Internal Med - H&P Results - Labs CBC & Chem 7: 05/19/18 18:27 05/19/18 18:27 - Diagnostic Studies Chest x-ray Additional comments: EXAMINATION: SINGLE XRAY VIEW OF THE CHEST 05/19/2018 10:32 am COMPARISON: 05/01/2017 HISTORY: ORDERING SYSTEM PROVIDED HISTORY: chest pain FINDINGS: The lungs are without acute focal process. There is no effusion or pneumothorax. The cardiomediastinal silhouette is stable. The osseous structures are stable. XR/XR chest 1V portable IMPRESSION: No acute process. D/ / Manuel Sargent MD / Manuel Sargent MD Interpreting Provider: Manuel Sargent MD - Assessment and plan (1) Chest pain Current Visit: Yes Status: Acute Assessment and plan: Acute chest pain and pressure that began yesterday, resolved, and returned this a.m. while at rest. Describes pain as centralized pain and pressure that began as pinching and then severe pressure with radiation to back, left shoulder, and neck. Sx lessened but are still present. Initial troponin <0.03. Will trend. Echocardiogram ordered. Stress test initially ordered but pt. is also receiving VQ scan to r/o PE so stress test cancelled (must wait three days). Continuous cardiac telemetry. Supplemental O2 w/titration and SpO2 monitoring. Aspirin. Nitro SL PRN. 80 mg Lipitor once. Zofran IVP for N/V. EKG today shows sinus bradycardia. Will consider Cardiology consult if troponin and/or echocardiogram results abnormal. Pt. is high risk for cardiac event based on current sx, familial hx of MIs and CVA; and current risk factors of HTN/HLD (w/o medications ), severe stress in her life, and current tobacco abuse. Pt. discussed w/Dr. Hendrickson who agrees w/plan of care. Observation. Qualifiers: Chest pain type: precordial pain Qualified Code(s): R07.2 - Precordial pain (2) Elevated d-dimer Current Visit: Yes Status: Acute Assessment and plan: Acutely elevated D-dimer on admission of 555. Pt. reports SOB and dyspnea. Denies hx of DVT or PE. Allergic to IV dye, so VQ scan ordered. Awaiting results. (3) Abnormal EKG Current Visit: Yes Status: Acute Assessment and plan: Acute abnormal EKG on admission. EKG performed at 09:13 today at [facility] demonstrated heart rate of 71, axis of 80, CA interval 150, and QT/QTC 378/97. Some T-wave inversions in V1 and V2 as well as in aVL. Not significantly changed from previous EKGs. EKG at [facility] at 15:11 shows sinus bradycardia. Continuous cardiac telemetry. (4) Nausea & vomiting Current Visit: Yes Status: Acute Assessment and plan: Acute nausea and vomiting accompanying CP sx. IVP Zofran 4 mg Q6HR PRN for N/V. Qualifiers: Vomiting type: unspecified Vomiting Intractability: unspecified Qualified Code(s): R11.2 - Nausea with vomiting, unspecified (5) History of suicidal ideation Current Visit: Yes Status: Chronic Assessment and plan: Hx of severe stress in life and previous suicidal ideation. Pt. reports 8 months ago she planned on hanging herself. Has hx of anxiety and depression. Pt. denies current SI/HI and has no plan to harm herself at the present time. Pt. is not currently treated for her anxiety and depression. Suicide precautions. Consult to Psychiatry ordered and discussed w/1A. Will add sitter if pt. begins to show signs of increasing anxiety, agitation, or depression. SW consult ordered to assist w/counseling placement. (6) HLD (hyperlipidemia) Current Visit: Yes Status: Chronic Assessment and plan: Hx of chronic HLD. Lipid panel in a.m. labs. Does not currently take statin. Consider adding Lipitor to home medications based on lipid panel results when available. Qualifiers: Hyperlipidemia type: pure hypercholesterolemia Qualified Code(s): E78.00 - Pure hypercholesterolemia, unspecified; E78.0 - Pure hypercholesterolemia (7) HTN (hypertension) Current Visit: Yes Status: Chronic Assessment and plan: Hx of chronic HTN. Monitor pt. and VS. Pt. does not currently take HTN medication. Hydralazine 10 mg Q6HR PRN ordered w/parameters. Qualifiers: Hypertension type: essential hypertension Qualified Code(s): I10 - Essential (primary) hypertension (8) CAD (coronary artery disease) Current Visit: Yes Status: Chronic Assessment and plan: Hx of chronic CAD. Heart cath in 2016 at [facility] w/o stents. Continue aspirin therapy. Hydralazine PRN w/parameters for HTN. Consider adding Lipitor to home medications based on lipid panel results when available. Qualifiers: Coronary Disease-Associated Artery/Lesion type: jamul artery [place] vs. transplanted heart: jamul heart Associated angina: angina presence unspecified Qualified Code(s): I25.10 - Atherosclerotic heart disease of jamul coronary artery without angina pectoris (9) Tobacco abuse Current Visit: Yes Status: Chronic Assessment and plan: Hx of chronic tobacco abuse. Currently smokes 6-8 cigarettes daily. Interested in quitting but has many stressors in her life currently. (10) DVT prophylaxis Current Visit: Yes Status: Acute Assessment and plan: Heparin 5,000 units SQ Q8HR for DVT prophylaxis. Monitor pt. for signs of bleeding. (11) Hx of fall Current Visit: Yes Status: Chronic Assessment and plan: Hx of falls d/t LLE weakness. Pt. reports that she has to drag her foot/leg to ambulate. Falls/safety precautions, up with assist, bed rest w/bathroom privileges w/assist only. PT/OT consults ordered. - Time Spent With Patient Total time spent is greater than 50% in coordination of care (as documented) at patient's floor/unit and/or counseling patient: Greater than 35 minutes <Chago Hendrickson - Last Filed: 05/20/18 19:33> Date of Encounter: 05/20/18 Internal Medicine - H&P: HPI History of present illness: Ms. Coleman is a 57 year old female All Systems PM: A 10-system review of systems was performed and is negative for pertinent findings except as documented above in the HPI. - Constitutional Vitals: Temp Pulse Resp BP Pulse Ox 98.0 F 51 18 122/71 100 05/20/18 16:13 05/20/18 16:13 05/20/18 16:13 05/20/18 16:13 05/20/18 16:13 Internal Med - H&P Results - Labs CBC & Chem 7: 05/20/18 04:46 05/20/18 04:46 Labs: Short CBC 05/20/18 Range/Units 04:46 WBC 6.6 (4.3-11.1) K/mcL Hgb 13.6 (11.5-15.4) g/dL Hct 40.6 (35.3-44.9) % Plt Count 189 (140-400) K/mcL Neutrophils # 3.6 (1.6-8.9) K/mcL BMP 05/20/18 04:46 Sodium 141 Potassium 4.2 Chloride 111 H Carbon Dioxide 26 BUN 15 Creatinine 0.76 Glucose 109 H Calcium 9.2 Cardiac Enzymes 05/19/18 Range/Units 22:06 Troponin I < 0.03 (< 0.04) ng/mL Liver Function 05/20/18 Range/Units 04:46 Total Bilirubin 0.5 (0.3-1.0) mg/dL AST 20 (13-39) Units/L ALT 23 (7-52) Units/L Alkaline Phosphatase 64 (34-104) Units/L Albumin 3.8 (3.5-5.7) g/dL - Impressions ITS Impressions Echocardiogram 05/19/18 14:18 Impressions: LVEF 55-60%. Normal LV chamber size, wall thickness and function. Normal left ventricular diastolic function. Normal right ventricular structure and function. Mild mitral regurgitation. No evidence of pulmonary hypertension. Left Ventricular Wall Motion: Rest Echo Findings All wall segments showed normal motion. Findings: Study Quality * Technically adequate exam. ECG Findings * Sinus bradycardia. Left Ventricle * LVEF 55-60%. * Normal LV chamber size, wall thickness and function. * Normal left ventricular diastolic function. Right Ventricle * Normal right ventricular structure and function. Left Atrium * Mildly dilated left atrium. Right Atrium * Normal right atrial size. Aortic Valve * Aortic valve not well visualized. * No aortic regurgitation. * No aortic stenosis. Mitral Valve * Normal mitral valve structure. * Mild mitral regurgitation. Tricuspid Valve * Normal tricuspid valve structure and function. * Trace tricuspid regurgitation. * No evidence of pulmonary hypertension. Pulmonic Valve * Normal pulmonic valve structure and function. * No pulmonic regurgitation. Aorta * Normally sized aortic root. Pericardium * The pericardium appears normal. IVC * Normal IVC dimensions and inspiratory collapse. Pulmonary Artery * Normal visualized portions of the main pulmonary artery. Pulmonary Perfusion Imaging 05/19/18 17:14 IMPRESSION: Low probability for pulmonary embolus. D/ / Graciela Lozano Cha, MD / Graciela Lozano Cha, MD Interpreting Provider: Graciela Lozano Cha, MD - Attending Attestation Discussed with KAIT and agree with assessment and plan as above Patient was walking the halls and was in no acute distress or shortness of breath Will rule out PE with VQ scan and rule out ACS with cardiac biomarkers - Assessment and plan (1) HTN (hypertension) Current Visit: Yes Status: Chronic Qualifiers: Hypertension type: essential hypertension Qualified Code(s): I10 - Essential (primary) hypertension (2) Tobacco abuse Current Visit: Yes Status: Chronic (3) Abnormal EKG Current Visit: Yes Status: Acute (4) Nausea & vomiting Current Visit: Yes Status: Acute Qualifiers: Vomiting type: unspecified Vomiting Intractability: unspecified Qualified Code(s): R11.2 - Nausea with vomiting, unspecified (5) Chest pain Current Visit: Yes Status: Inactive Qualifiers: Chest pain type: precordial pain Qualified Code(s): R07.2 - Precordial pain (6) Elevated d-dimer Current Visit: Yes Status: Inactive (7) CAD (coronary artery disease) Current Visit: Yes Status: Chronic Qualifiers: Coronary Disease-Associated Artery/Lesion type: jamul artery [place] vs. transplanted heart: jamul heart Associated angina: angina presence unspecified Qualified Code(s): I25.10 - Atherosclerotic heart disease of jamul coronary artery without angina pectoris (8) DVT prophylaxis Current Visit: Yes Status: Acute (9) HLD (hyperlipidemia) Current Visit: Yes Status: Chronic Qualifiers: Hyperlipidemia type: pure hypercholesterolemia Qualified Code(s): E78.00 - Pure hypercholesterolemia, unspecified; E78.0 - Pure hypercholesterolemia (10) History of suicidal ideation Current Visit: Yes Status: Chronic (11) Hx of fall Current Visit: Yes Status: Chronic - Time Spent With Patient Total time spent is greater than 50% in coordination of care (as documented) at patient's floor/unit and/or counseling patient:
[2018-05-19] MEDS ORDERED: Ondansetron 4 MG/2 ML VIAL IVP PRN (16:03)
[2018-05-19] MEDS: Aspirin Enteric Coated 81 MG Tablet PO SCH (16:31)
[2018-05-19 18:47] LABS: Basophils # 0.1 K/mcL (0.0-0.2); Basophils % 0.7 %; Eosinophils # 0.2 K/mcL (0.0-0.6); Eosinophils % 1.7 %; Hematocrit 40.4 % (35.3-44.9); Hemoglobin 13.6 g/dL (11.5-15.4); Immature Granulocytes % 0.3 % (0-4); Lymphocytes # 3.3 K/mcL (0.6-4.6); Lymphocytes % 37.5 %; Mean Corpuscular HGB Conc 33.7 g/dL (31.6-35.5); Mean Corpuscular Hemoglobin 31.1 pg (28.0-33.3); Mean Corpuscular Volume 92.4 fL (83.0-100.0); Mean Platelet Volume 10.4 fL (9.4-12.4); Monocytes # 0.5 K/mcL (0.0-1.3); Monocytes % 5.9 %; Neutrophils # 4.7 K/mcL (1.6-8.9); Platelet Count 190 K/mcL (140-400); Red Blood Count 4.37 M/mcL (3.82-4.97); Red Cell Distribution Width 12.6 % (11.5-14.5); Segmented Neutrophils % 53.9 %
[2018-05-19 19:09] LABS: Alanine Aminotransferase 26 Units/L (7-52); Albumin 4.1 g/dL (3.5-5.7); Albumin/Globulin Ratio 1.9 (1.1-2.2); Alkaline Phosphatase 71 Units/L (34-104); Aspartate Amino Transferase 26 Units/L (13-39); BUN/Creatinine Ratio 19 (6-26); Bilirubin,Total 0.5 mg/dL (0.3-1.0); Blood Urea Nitrogen 14 mg/dL (6-20); Calcium 9.3 mg/dL (8.6-10.3); Carbon Dioxide 27 mEq/L (23-29); Chloride 108 mEq/L (98-107); Globulin 2.2 g/dL (2.4-3.5); Glucose 120 mg/dL (70-105); Osmolality,Calculated 290 (280-300); Potassium 3.6 mEq/L (3.5-5.1); Sodium 139 mEq/L (136-145); Total Protein 6.3 g/dL (6.4-8.9); eGFR For African Americans > 60 (> 60); eGFR For Non-African Americans > 60 (> 60)
--- NOTE | 2018-05-19 19:33 | Consult Note ---
Date of Encounter: 05/19/18 Time of Encounter: 19:20 Assessment & Recommendation (1) Depression Current visit: Yes Status: Acute Qualifiers: Depression Type: major depressive disorder Major depression recurrence: recurrent Psychotic features: without psychotic features Qualified Code(s): F33.2 - Major depressive disorder, recurrent severe without psychotic features History of Present Illness Patient: new to practice Requesting Physician: Chago Hendrickson History of present illness: 57-year-old female x3 x3 with 5 children, seen via consultation psychiatry for exacerbation of mood. Pt noted "I have been a little down lately but nothing too bad.....I just miss my grandbabies. Pt was in agreement to start sertaline 50 mg PO QAM for mood, pt was educated on the risks benefits and side effects of current medications, including no medications. Pt noted she felt safe and comfortable on the unit. Pt was in agreement with treatment plan. Pt noted that she is doing alright today. Pt noted she slept 4-5 hours last night. Pt noted her appetite is reduced. Pt rated her depression a 7, on a scale of zero to ten with ten being the worst and zero being none. Pt rate her anxiety a 0, on the same scale. Pt denied any current visual or auditory hallucinations. Pt denied any thoughts to harm herself or anyone else. Pt denied any inpt psychiatric hospitalizations. Pt denied any previous suicide attempts. Pt denied any family psych history. PT agreed to start sertraline 50 mg for mood. Pt was educated on the risks benefits and side-effects of these medications including no medication, pt was in agreement. Ptdenied any hx of HEP C, HIV, TBI, or Seizures. Tobacco: 8 cigs per day Alcohol: Denies Street: Denies. Caffeine: 2-3 per day 1.Interval hx 2.Continue current medications 3.Review current labs 4.Pt had an opportunity to ask questions and discuss current treatment plan. 5.Supportive therapy was provided 6.Pt encouraged to consider group or individual therapy 7.Pt was in agreement with treatment plan. 8.Pt was educated on the risks benefits and side effects of current medications. 9. PT agreed to start sertraline 50 mg for mood. Pt was educated on the risks benefits and side-effects of these medications including no medication, pt was in agreement. 10. Pt cleared via psychiatry for D/C home. 11. Coordinate Mental health follow up prior to D/C home. CC: Chago Hendrickson Past Med Surg Social Fam HX - Past Medical History Medical history: coronary artery disease, hyperlipidemia, hypertension - Past Psychiatric History Psychiatric history: Reports: depression Family psychiatric history: No Family History of Suicide: None - Past Surgical History Surgical History: cholecystectomy, hysterectomy (Total) - Social History Smoking Status: Current every day smoker Smokeless Tobacco Status: No Alcohol use: none Drug use: none - Family History Brother Race: Family Member Ethnicity: Non- Living Status: Age at : 75 Cause of : CVA Hx Family Cardiac Disorders: Yes (CAD) Mother Race: Family Member Ethnicity: Non- Living Status: Age at : 86 Cause of : M I Hx Family Cardiac Disorders: Yes ([place], Pacemaker) Father Race: Family Member Ethnicity: Non- Living Status: Age at : 65 Cause of : [place]/Pneumonia Hx Family Cardiac Disorders: Yes ([place], CAD) Sister Race: Family Member Ethnicity: Non- Living Status: Still Living Hx Family Cardiac Disorders: Yes (CAD, Pacemaker) Hx Family Cancer: Yes Medications & Allergies Meloxicam 7.5 mg PO DAILY #10 tablet 05/01/17 [Rx] Aspirin 81 mg PO DAILY 05/19/18 [History] Gabapentin [Neurontin] 400 mg PO TID 05/19/18 [History] 3 Allergy/AdvReac Type Severity Reaction Status Date / Time Iodinated Contrast- Oral and Allergy Hives Verified 05/01/17 13:14 IV Dye Penicillins [PCN] Allergy Hives Verified 05/01/17 13:14 Sulfa (Sulfonamide Allergy See Verified 05/01/17 13:14 Antibiotics) Comments Review of Systems Constitutional: Denies: fever, chills, weakness, weight change Eyes: Denies: eye pain, vision change Ears, Nose, Throat: Denies: ear pain, throat pain, dental pain, hearing loss, congestion Cardiovascular: Denies: chest pain, palpitations, dyspnea on exertion Respiratory: Denies: cough, dyspnea, wheezes Gastrointestinal: Denies: abdominal pain, nausea, vomiting, diarrhea, constipation Genitourinary female: Denies: urgency, dysuria, frequency, abnormal menses, dyspareunia Musculoskeletal: Denies: joint swelling, joint pain Integumentary: Denies: rash, lesions, pruritus Neurological: Denies: headache, weakness, numbness, memory loss Psychiatric: Reports: depression, abnormal sleep pattern Endocrine: Denies: fatigue, heat or cold intolerance Hematologic/Lymphatic: Denies: easy bruising, lymphadenopathy Allergic/Immunologic: Denies: urticaria, itchy eyes Psychiatry Exam - Constitutional Vitals: Temp Pulse Resp BP Pulse Ox 97.7 F 57 16 131/85 99 05/19/18 14:30 05/19/18 14:30 05/19/18 14:30 05/19/18 14:30 05/19/18 14:30 General appearance: age & developmentally appropriate, well-groomed, well- nourished - Musculoskeletal Gait: normal Station: relaxed Strength & Tone: normal for patient - Psychiatric Patient Orientation: Yes Person, Yes Time, Yes Place Level of alertness: Alert Behavior: calm, cooperative Psychomotor activity: Normal Eye Contact: Maintains Eye Contact Mood Description: Euthymic/stable Affect description: congruent with mood, full range Speech Volume: Normal Speech pattern: normal rate, normal rhythm, normal tone, fluent, spontaneous Language & Vocabulary: consistent with education Thought Process: Linear, Goal Oriented Thought Content: No Suicidal ideation, No Homicidal ideation, No Overt delusions Perceptual Disturbances: No Auditory hallucinations, No Visual hallucinations Attention Span Ability: Capable of Focused Attention Memory Description: Grossly Intact Patient Reliability: Reliable Historian Fund of knowledge: Yes abstraction ability, Yes aware of current events Intelligence Estimate: Average Judgment: Limited Insight: Partial Results - Labs Labs: Laboratory Last Values WBC 8.8 K/mcL (4.3-11.1) 05/19/18 18:27 RBC 4.37 M/mcL (3.82-4.97) 05/19/18 18:27 Hgb 13.6 g/dL (11.5-15.4) 05/19/18 18: Hct 40.4 % (35.3-44.9) 05/19/18 18: MCV 92.4 fL (83.0-100.0) 05/19/18 18:27 MCH 31.1 pg (28.0-33.3) 05/19/18 18: MCHC 33.7 g/dL (31.6-35.5) 05/19/18 18: RDW 12.6 % (11.5-14.5) 05/19/18 18: Plt Count 190 K/mcL (140-400) 05/19/18 18: MPV 10.4 fL (9.4-12.4) 05/19/18 18: Immature Gran % 0.3 % (0-4) 05/19/18 18: Seg Neutrophils % 53.9 % 05/19/18 18: Lymphocytes % 37.5 % 05/19/18 18: Monocytes % 5.9 % 05/19/18 18: Eosinophils % 1.7 % 05/19/18 18: Basophils % 0.7 % 05/19/18 18: Neutrophils # 4.7 K/mcL (1.6-8.9) 05/19/18: Lymphocytes # 3.3 K/mcL (0.6-4.6) 05/19/18 18: Monocytes # 0.5 K/mcL (0.0-1.3) 05/19/18 18: Eosinophils # 0.2 K/mcL (0.0-0.6) 05/19/18 18: Basophils # 0.1 K/mcL (0.0-0.2) 05/19/18 18: Sodium 139 mEq/L (136-145) 05/19/18 18: Potassium 3.6 mEq/L (3.5-5.1) 05/19/18 18: Chloride 108 mEq/L (98-107) H 05/19/18 18: Carbon Dioxide 27 mEq/L (23-29) 05/19/18 18: BUN 14 mg/dL (6-20) 05/19/18 18: Creatinine 0.72 mg/dL (0.60-1.20) 05/19/18 18: Est GFR ( Amer) > 60 (> 60) 05/19/18 18: Est GFR (Non-Af Amer) > 60 (> 60) 05/19/18 18: BUN/Creatinine Ratio 19 (6-26) 05/19/18 18: Glucose 120 mg/dL (70-105) H 05/19/18 18: Calculated Osmolality 290 (280-300) 05/19/18: Calcium 9.3 mg/dL (8.6-10.3) 05/19/18 18:27 Total Bilirubin 0.5 mg/dL (0.3-1.0) 05/19/18 18:27 AST 26 Units/L (13-39) 05/19/18 18:27 ALT 26 Units/L (7-52) 05/19/18 18:27 Alkaline Phosphatase 71 Units/L (34-104) 05/19/18 18:27 Troponin I < 0.03 ng/mL (< 0.04) 05/19/18 16:30 Serum Total Protein 6.3 g/dL (6.4-8.9) L 05/19/18 18:27 Albumin 4.1 g/dL (3.5-5.7) 05/19/18 18:27 Globulin 2.2 g/dL (2.4-3.5) L 05/19/18 18:27 Albumin/Globulin Ratio 1.9 (1.1-2.2) 05/19/18 18:27 Consult Discharge Plan - Plan Additional Instructions: Pt cleared via psychiatry for D/C home. Coordinate Mental health follow up prior to D/C home. Referrals: Steph Garcia, [facility] [Primary Care Provider] -
[2018-05-19] MEDS: *HR* Heparin 5,000 UNIT/ML VIAL SQ SCH (20:58)
[2018-05-20] MEDS: *HR* Heparin 5,000 UNIT/ML VIAL SQ SCH ×3 (05:08→20:13)
[2018-05-20 05:25] LABS: Basophils # 0.1 K/mcL (0.0-0.2); Basophils % 0.8 %; Eosinophils # 0.2 K/mcL (0.0-0.6); Eosinophils % 2.7 %; Hematocrit 40.6 % (35.3-44.9); Hemoglobin 13.6 g/dL (11.5-15.4); Immature Granulocytes % 0.6 % (0-4); Immature Platelets 5.6 % (1.1-6.1); Lymphocytes # 2.2 K/mcL (0.6-4.6); Lymphocytes % 33.5 %; Mean Corpuscular HGB Conc 33.5 g/dL (31.6-35.5); Mean Corpuscular Hemoglobin 31.5 pg (28.0-33.3); Mean Platelet Volume 10.5 fL (9.4-12.4); Monocytes # 0.5 K/mcL (0.0-1.3); Monocytes % 7.3 %; Neutrophils # 3.6 K/mcL (1.6-8.9); Platelet Count 189 K/mcL (140-400); Red Blood Count 4.32 M/mcL (3.82-4.97); Red Cell Distribution Width 12.5 % (11.5-14.5); Segmented Neutrophils % 55.1 %
[2018-05-20 05:38] LABS: Alanine Aminotransferase 23 Units/L (7-52); Albumin 3.8 g/dL (3.5-5.7); Albumin/Globulin Ratio 1.7 (1.1-2.2); Alkaline Phosphatase 64 Units/L (34-104); Aspartate Amino Transferase 20 Units/L (13-39); BUN/Creatinine Ratio 20 (6-26); Bilirubin,Total 0.5 mg/dL (0.3-1.0); Blood Urea Nitrogen 15 mg/dL (6-20); Calcium 9.2 mg/dL (8.6-10.3); Carbon Dioxide 26 mEq/L (23-29); Chloride 111 mEq/L (98-107); Chol/HDL Ratio 4.2 (0-4.9); Cholesterol 186 mg/dL (< 200); Globulin 2.3 g/dL (2.4-3.5); Glucose 109 mg/dL (70-105); HDL Cholesterol 44 mg/dL (40-59); LDL Cholesterol,Calculated 115 mg/dL (0-99); Magnesium 1.9 mg/dL (1.6-2.6); Osmolality,Calculated 293 (280-300); Potassium 4.2 mEq/L (3.5-5.1); Sodium 141 mEq/L (136-145); Total Protein 6.1 g/dL (6.4-8.9); Triglycerides 135 mg/dL (< 150); eGFR For African Americans > 60 (> 60); eGFR For Non-African Americans > 60 (> 60)
[2018-05-20 08:38] LABS: Estimated Average Glucose 114 mg/dl; Hemoglobin A1C 5.6 %
[2018-05-20] MEDS: Nicotine 14 MG PATCH.TD24 TD SCH (09:04)
[2018-05-20] MEDS: Aspirin Enteric Coated 81 MG Tablet PO SCH (09:04)
[2018-05-20] MEDS: *HR* HYDROcodone/Acet 5/325 mg TABLET PO PRN (09:11)
--- NOTE | 2018-05-20 12:29 | Electrocardiograph Report ---
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
--- NOTE | 2018-05-20 12:29 | Electrocardiograph Report ---
[address] [place], [place] [address] Test Date: 2018-05-19 Pat Name: Rachana Coleman Department: 113 Room: 3B44 Gender: F Center Director: : 1960 Requested By: [id number] Order Number: [id number] Reading MD: Jose Gutiérrez Measurements Intervals [place] Rate: 55 P: 72 RI: 166 QRS: 65 QRSD: 88 T: 61 QT: 414 QTc: 402 Interpretive Statements SINUS BRADYCARDIA Electronically Signed On 05-20-2018 12:28:10 EDT by Jose Gutiérrez
--- NOTE | 2018-05-20 16:27 | Internal Med Progress Note ---
Date of Encounter: 05/20/18 Time of Encounter: 10:50 - Assessment and plan (1) HTN (hypertension) Current Visit: Yes Status: Chronic Assessment and plan: Chronic. Per subjective history. No home medications. Hydralazine PRN. Qualifiers: Hypertension type: essential hypertension Qualified Code(s): I10 - Essential (primary) hypertension (2) Tobacco abuse Current Visit: Yes Status: Chronic Assessment and plan: Chronic. Pt reports that she is trying to quit. Nicotine patch ordered prn. (3) Abnormal EKG Current Visit: Yes Status: Acute Assessment and plan: Acute abnormal EKG on admission. EKG performed at 09:13 today at [place] [facility] demonstrated heart rate of 71, axis of 80, [place] interval 150, and QT/QTC 378/97. Some T-wave inversions in V1 and V2 as well as in aVL. Not significantly changed from previous EKGs. EKG at [facility] at 15:11 shows sinus bradycardia. Continuous cardiac telemetry. 05/20/18-Repeat EKG in a.m. Troponins negative, suspect that this may be GI in nature. TTE showed LVEF of 55-60%, mild MR and normal wall segment motion. Patient had stress test in October, showed a gated EF 63% was negative for ischemia or infarct. Observe overnight. Continue telemetry. (4) Nausea & vomiting Current Visit: Yes Status: Acute Assessment and plan: Nausea and vomiting with associated epigastric pain, radiation to back. Patient reports nausea and substernal at epigastric chest pain with bending for the last several months. GI cocktail is ordered, omeprazole for morning. Patient also has order for Zofran 4 mg IV every 6 hours as needed for nausea and vomiting. Qualifiers: Vomiting type: unspecified Vomiting Intractability: unspecified Qualified Code(s): R11.2 - Nausea with vomiting, unspecified (5) Chest pain Current Visit: Yes Status: Inactive Assessment and plan: Plan as above. Patient had VQ scan for elevated d-dimer on admission and will not be able to have nuclear stress test for 3 days after. Patient states that she is physically unable to complete an exercise stress test. We will consult cardiology in the morning if further EKG changes or unresolved chest pain. Qualifiers: Chest pain type: precordial pain Qualified Code(s): R07.2 - Precordial pain (6) Elevated d-dimer Current Visit: Yes Status: Inactive Assessment and plan: Elevated d-dimer on admission. Patient reports short of breath, dyspnea, nausea , vomiting. Patient is allergic to IVP dye, VQ scan ordered, completed, low probability for PE. (7) CAD (coronary artery disease) Current Visit: Yes Status: Chronic Assessment and plan: Chronic. Patient reports LHC at [facility] in 2016 without any intervention. Continue ASA. Pt is on no other medications. Lipid panel WNL, no statin required. Continue prn Hydralazine Qualifiers: Coronary Disease-Associated Artery/Lesion type: [place] artery [place] vs. transplanted heart: [place] heart Associated angina: angina presence unspecified Qualified Code(s): I25.10 - Atherosclerotic heart disease of [place] coronary artery without angina pectoris (8) DVT prophylaxis Current Visit: Yes Status: Acute Assessment and plan: Heparin TID. (9) HLD (hyperlipidemia) Current Visit: Yes Status: Chronic Assessment and plan: LIpid panel WNL, no statin required. Qualifiers: Hyperlipidemia type: pure hypercholesterolemia Qualified Code(s): E78.00 - Pure hypercholesterolemia, unspecified; E78.0 - Pure hypercholesterolemia (10) History of suicidal ideation Current Visit: Yes Status: Chronic Assessment and plan: Pt denies SI/HI. She has been evaluated by psychiatrist. Has agreed to start Sertraline 50mg po daily. Continue medication and follow up with mental health professional after discharge. (11) Hx of fall Current Visit: Yes Status: Chronic Assessment and plan: Hx of falls d/t LLE weakness. Pt. reports that she has to drag her foot/leg to ambulate. Falls/safety precautions, up with assist, bed rest w/bathroom privileges w/assist only. PT/OT consults completed and patient has no acute skilled PT needs - Time Spent With Patient Total time spent is greater than 50% in coordination of care (as documented) at patient's floor/unit and/or counseling patient: less than 15 minutes - Subjective Interval history: Pt was seen and assessed at bedside at 1050. Pt reports that she has recently had decreased appetite, epigastric pain with radiation to back, nausea and vomiting. She states that she has had substernal and epigastric pain with bending for "several months." She denies any SI or HI, but has been depressed recently. Denies SOB, n/v, diarrhea, constipation, headache, blurred vision. - Constitutional Vitals: Temp Pulse Resp BP Pulse Ox 98.0 F 51 18 122/71 100 05/20/18 16:13 05/20/18 16:13 05/20/18 16:13 05/20/18 16:13 05/20/18 16:13 General appearance: Present: cooperative, mild distress, A&O X 3, pleasant, answers questions appropriately - Head Head exam: Present: atraumatic, normal inspection, normocephalic - Eye Eye exam: Present: normal appearance, conjuntiva pink, sclera anicteric - Neck Neck exam general surgery: Present: normal inspection, supple, trachea midline. Absent: lymphadenopathy, tenderness - Respiratory Respiratory exam: Present: CTAB. Absent: accessory muscle use, rales, rhonchi, wheezes - Cardiovascular Cardiovascular exam: Present: RRR, +S1, +S2. Absent: diastolic murmur, gallop, rubs, systolic murmur - GI/Abdominal GI/Abdominal exam: Present: normal bowel sounds, soft, tenderness. Absent: distended, guarding, hernia, hepatomegaly - Extremities Exam Extremities exam: Present: normal capillary refill, normal inspection, warm, radial pulses palpable and symmetrical. Absent: calf tenderness, cyanotic, pedal edema, tenderness - Neurological Exam Neurological exam: Present: alert, oriented X3, no focal deficits. Absent: facial droop, speech deficit - Skin Skin exam: Present: dry, intact, normal color, warm. Absent: rash Internal Medicine: Result - Labs CBC & Chem 7: 05/20/18 04:46 05/20/18 04:46 Labs: Short CBC 05/19/18 05/20/18 Range/Units 18:27 04:46 WBC 8.8 6.6 (4.3-11.1) K/mcL Hgb 13.6 13.6 (11.5-15.4) g/dL Hct 40.4 40.6 (35.3-44.9) % Plt Count 190 189 (140-400) K/mcL Neutrophils # 4.7 3.6 (1.6-8.9) K/mcL BMP 05/19/18 05/20/18 18:27 04:46 Sodium 139 141 Potassium 3.6 4.2 Chloride 108 H 111 H Carbon Dioxide 27 26 BUN 14 15 Creatinine 0.72 0.76 Glucose 120 H 109 H Calcium 9.3 9.2 Cardiac Enzymes 05/19/18 05/19/18 Range/Units 16:30 22:06 Troponin I < 0.03 < 0.03 (< 0.04) ng/mL Liver Function 05/19/18 05/20/18 Range/Units 18:27 04:46 Total Bilirubin 0.5 0.5 (0.3-1.0) mg/dL AST 26 20 (13-39) Units/L ALT 26 23 (7-52) Units/L Alkaline Phosphatase 71 64 (34-104) Units/L Albumin 4.1 3.8 (3.5-5.7) g/dL - Impressions Impressions Echocardiogram 05/19/18 14:18 Impressions: LVEF 55-60%. Normal LV chamber size, wall thickness and function. Normal left ventricular diastolic function. Normal right ventricular structure and function. Mild mitral regurgitation. No evidence of pulmonary hypertension. Left Ventricular Wall Motion: Rest Echo Findings All wall segments showed normal motion. Findings: Study Quality * Technically adequate exam. ECG Findings * Sinus bradycardia. Left Ventricle * LVEF 55-60%. * Normal LV chamber size, wall thickness and function. * Normal left ventricular diastolic function. Right Ventricle * Normal right ventricular structure and function. Left Atrium * Mildly dilated left atrium. Right Atrium * Normal right atrial size. Aortic Valve * Aortic valve not well visualized. * No aortic regurgitation. * No aortic stenosis. Mitral Valve * Normal mitral valve structure. * Mild mitral regurgitation. Tricuspid Valve * Normal tricuspid valve structure and function. * Trace tricuspid regurgitation. * No evidence of pulmonary hypertension. Pulmonic Valve * Normal pulmonic valve structure and function. * No pulmonic regurgitation. Aorta * Normally sized aortic root. Pericardium * The pericardium appears normal. IVC * Normal IVC dimensions and inspiratory collapse. Pulmonary Artery * Normal visualized portions of the main pulmonary artery. Pulmonary Perfusion Imaging 05/19/18 17:14 IMPRESSION: Low probability for pulmonary embolus. D/ / Graciela Lozano Cha, MD / Graciela Lozano Cha, MD Interpreting Provider: Graciela Lozano Cha, MD Consult Discharge Plan - Plan Additional Instructions: Pt cleared via psychiatry for D/C home. Coordinate Mental health follow up prior to D/C home. Referrals: Steph Garcia, YARY [Primary Care Provider] -
[2018-05-20] MEDS ORDERED: GI Cocktail 40 ML EACH PO ONE (16:38)
[2018-05-20] MEDS: Gabapentin 400 MG CAPSULE PO SCH (20:13)
--- NOTE | 2018-05-21 01:02 | Event Note ---
Date of Encounter: 05/20/18 Time of Encounter: 21:22 Alerted by pts. nurse MARINA Taveras that Psychiatry had signed off on pt. Nurse wanted to know about continuation of suicide precautions. Went to see pt. who was resting in bed. With nurse present, I asked the pt. about how she was feeling and if she was still experiencing a high level of stress. She stated no. I then asked her about our conversation during her admission about her plan to hang herself 8 months ago. Pt. reiterated that she had said this during her examination but she was no longer thinking of self-harm or harming others. I asked her if she felt that speaking to Psychiatry had helped her. She replied yes. Pt. again stated that she had no intent or plan to harm herself or others at the present time. Suicide precautions discontinued. Pt. will continue to be monitored for signs of agitation, anxiety, or depression closely.
[2018-05-21] MEDS: *HR* Heparin 5,000 UNIT/ML VIAL SQ SCH ×2 (05:53→14:08)
[2018-05-21 06:33] LABS: Basophils % 0.7 %; Hematocrit 42.9 % (35.3-44.9); Hemoglobin 14.3 g/dL (11.5-15.4); Immature Granulocytes % 0.2 % (0-4); Lymphocytes % 32.7 %; Mean Corpuscular HGB Conc 33.3 g/dL (31.6-35.5); Mean Corpuscular Volume 92.9 fL (83.0-100.0); Mean Platelet Volume 10.3 fL (9.4-12.4); Monocytes % 7.6 %; Neutrophils # 3.2 K/mcL (1.6-8.9); Platelet Count 189 K/mcL (140-400); Red Blood Count 4.62 M/mcL (3.82-4.97); Red Cell Distribution Width 12.5 % (11.5-14.5); Segmented Neutrophils % 55.8 %
[2018-05-21 06:34] LABS: Eosinophils # 0.2 K/mcL (0.0-0.6); Lymphocytes # 1.9 K/mcL (0.6-4.6); Monocytes # 0.4 K/mcL (0.0-1.3)
[2018-05-21 06:56] LABS: Alanine Aminotransferase 23 Units/L (7-52); Albumin 4.1 g/dL (3.5-5.7); Albumin/Globulin Ratio 1.6 (1.1-2.2); Alkaline Phosphatase 75 Units/L (34-104); Aspartate Amino Transferase 18 Units/L (13-39); BUN/Creatinine Ratio 16 (6-26); Bilirubin,Total 0.5 mg/dL (0.3-1.0); Blood Urea Nitrogen 13 mg/dL (6-20); Calcium 9.4 mg/dL (8.6-10.3); Carbon Dioxide 29 mEq/L (23-29); Chloride 108 mEq/L (98-107); Globulin 2.5 g/dL (2.4-3.5); Glucose 110 mg/dL (70-105); Osmolality,Calculated 293 (280-300); Potassium 4.1 mEq/L (3.5-5.1); Sodium 141 mEq/L (136-145); Total Protein 6.6 g/dL (6.4-8.9); eGFR For African Americans > 60 (> 60); eGFR For Non-African Americans > 60 (> 60)
[2018-05-21] MEDS: *HR* HYDROcodone/Acet 5/325 mg TABLET PO PRN (07:57)
[2018-05-21] MEDS: Aspirin Enteric Coated 81 MG Tablet PO SCH (07:57)
[2018-05-21] MEDS: Gabapentin 400 MG CAPSULE PO SCH (07:57)
[2018-05-21] MEDS: Nicotine 14 MG PATCH.TD24 TD SCH (07:58)
[2018-05-21] MEDS ORDERED: Aspirin 81 MG TAB.CHEW PO SCH (09:00)
[2018-05-21 11:27] VITALS: BP 108/75
--- NOTE | 2018-05-21 16:16 | Discharge Summary ---
- NOTES TO OUTPATIENT PROVIDER Notes to Outpatient Provider: Patient presented for admission from [facility] on May 19. Onset of chest pain began day before admission and resolved but returned on the morning of the admission when she was at rest. She describes a pinching sensation in the center of her chest progressed to severe pressure with radiation straight through to her back, left shoulder and left neck. Symptoms lasted approximately 15 minutes and resolved. Report accompanying shortness of breath, diaphoresis, nausea, vomiting and increasing fatigue for one month. She reports increased stress at home with family and significant other, as well at her job. Patient also reported that she had suicidal ideations approximately 8 months ago. [facility] [place] 2005 without any intervention. Last stress test was in 2014. Chest pain was concerning for PE, VQ scan was done due to patient's IV dye allergy. This made her ineligible to have nuclear stress test for 3 days. VQ showed low probability for PE. I suspect the patient's pain is GI vs stress/anxiety. Patient received relief from pain with GI cocktail and omeprazole area to remains pain-free today. EKG without any further changes. She will go home with prescription for omeprazole 20 mg daily. Recommended follow-up with primary care for continued evaluation if chest pain persists. Orders not resulted at time of discharge: Pending orders 05/22/18 04:00 Complete Blood Count [HEME] AM 0400 Comprehensive Metabolic Panel AM 0400 Date of Encounter: 05/21/18 Time of Encounter: 09:50 - Discharge Diagnosis (1) HTN (hypertension) Priority: Primary Status: Chronic Assessment and Plan: Chronic. Stable and well controlled. Continue home medications. Qualifiers: Hypertension type: essential hypertension Qualified Code(s): I10 - Essential (primary) hypertension (2) Tobacco abuse Priority: Secondary Status: Chronic Assessment and Plan: Chronic. Pt reports that she is trying to quit. Nicotine patch rx for home. (3) Abnormal EKG Priority: Secondary Status: Acute Assessment and Plan: Acute abnormal EKG on admission. EKG performed at 09:13 today at [facility] demonstrated heart rate of 71, axis of 80, [place] interval 150, and QT/QTC 378/97. Some T-wave inversions in V1 and V2 as well as in aVL. Not significantly changed from previous EKGs. EKG at [facility] at 15:11 shows sinus bradycardia. 05/21/18-Repeat EKG . Troponins negative, chest pain likely GI in nature. Patient received relief with GI cocktail and omeprazole. TTE showed LVEF of 55-60%, mild MR and normal wall segment motion. Patient had stress test in October, showed a gated EF 63% was negative for ischemia or infarct. Patient states that she is feeling better today and is ready to go home. (4) Nausea & vomiting Priority: Secondary Status: Resolved Assessment and Plan: Nausea and vomiting with associated epigastric pain, radiation to back. Patient reports nausea and substernal at epigastric chest pain with bending for the last several months. Patient received relief from epigastric pain and nausea and vomiting with omeprazole and GI cocktail. Qualifiers: Vomiting type: unspecified Vomiting Intractability: unspecified Qualified Code(s): R11.2 - Nausea with vomiting, unspecified (5) Chest pain Priority: Secondary Status: Acute Assessment and Plan: Plan as above. Patient had VQ scan for elevated d-dimer on admission and will not be able to have nuclear stress test for 3 days after. Pain has resolved and patient reports that she is feeling better. Recommend follow-up with primary care, stress test outpatient if pain persists. Final EKG at discharge sinus bradycardia, rate 59, no T wave abnormalities noted. Qualifiers: Chest pain type: precordial pain Qualified Code(s): R07.2 - Precordial pain (6) Elevated d-dimer Priority: Secondary Status: Inactive Assessment and Plan: Elevated d-dimer. Patient reports short of breath, dyspnea, nausea, vomiting with chest/epigastric pain. Patient is allergic to IVP dye, VQ scan ordered, completed, low probability for PE. (7) CAD (coronary artery disease) Priority: Secondary Status: Chronic Assessment and Plan: Chronic. Patient reports C at [facility] in 2016 without any intervention. Continue ASA. Pt is on no other medications. Lipid panel WNL, no statin required. Qualifiers: Coronary Disease-Associated Artery/Lesion type: [place] artery [place] vs. transplanted heart: [place] heart Associated angina: angina presence unspecified Qualified Code(s): I25.10 - Atherosclerotic heart disease of [place] coronary artery without angina pectoris (8) DVT prophylaxis Priority: Secondary Status: Acute Assessment and Plan: Heparin TID. Patient is ambulatory (9) History of suicidal ideation Priority: Secondary Status: Chronic Assessment and Plan: Pt denies SI/HI. She has been evaluated by psychiatrist, they have signed off and cleared patient. Continue Sertraline 50mg po daily. Continue medication and follow up with mental health professional after discharge. (10) Hx of fall Priority: Secondary Status: Chronic Assessment and Plan: Hx of falls d/t LLE weakness. Pt. reports that she has to drag her foot/leg to ambulate. Falls/safety precautions, up with assist, bed rest w/bathroom privileges w/ assist only. PT/OT consults completed and patient has no acute skilled PT needs Hospital course: Ms. Coleman is a 57 year old female with past medical history of hypertension, tobacco abuse, syncope, cholecystectomy, hyperlipidemia, coronary artery disease , hyperlipidemia, history of suicidal ideation, depression. See assessment and plan for hospital course. Discharge discussed with: patient Time spent discussing smoking cessation with patient: 3 to 10 minutes - Time Spent with Patient Total time spent providing and/or coordinating discharge services: Less than 30 minutes - Discharge Medications Prescriptions: Aspirin Enteric Coated [Aspirin EC] 81 mg PO DAILY #30 tablet. Nicotine Patch [Nicoderm] 14 mg TD DAILY #30 patch.td24 Omeprazole [PriLOSEC] 20 mg PO DAILY@0730 #30 capsule. Sertraline [Zoloft] 50 mg PO DAILY #30 tablet Home Medications: Aspirin 81 mg PO DAILY 05/19/18 [History] Gabapentin [Neurontin] 400 mg PO TID 05/19/18 [History] Aspirin Enteric Coated [Aspirin EC] 81 mg PO DAILY #30 tablet. 05/21/18 [Rx] Nicotine Patch [Nicoderm] 14 mg TD DAILY #30 patch.td24 05/21/18 [Rx] Omeprazole [PriLOSEC] 20 mg PO DAILY@0730 #30 capsule. 05/21/18 [Rx] Sertraline [Zoloft] 50 mg PO DAILY #30 tablet 05/21/18 [Rx] Allergies/Adverse Reactions: 3 Allergy/AdvReac Type Severity Reaction Status Date / Time Iodinated Contrast- Oral and Allergy Hives Verified 05/01/17 13:14 IV Dye Penicillins [PCN] Allergy Hives Verified 05/01/17 13:14 Sulfa (Sulfonamide Allergy See Verified 05/01/17 13:14 Antibiotics) Comments Date of admission: 05/19/18 13:17 Primary care physician: Steph Garcia CNP Consults: 05/19/18 14:14 Consult to Biological Sciences Professor [CONS] Routine Reason for SW Consult: Patient is experiencing a lot of stress in her life and states that 8 months ago she thought of hanging herself. Pt. needs set up for counseling in order to help her cope w/life stressors right now. Please assess for any other home needs for post-discharge planning. 05/19/18 14:21 Consult to Psychiatry [CONS] Routine Consulting Provider: Psychiatry Tricia Reason consult: Other Other reason and/or additional details: Thoughts of harming herself. States she wanted to hang herself several months ago. No SI/HI at the present time, but pt. needs set up to see counselor to help her deal w/the many stressors she has in her life presently. Call Completed: Yes Discharging clinician: Janneth Haile Anticipated date of discharge: 05/21/18 - Constitutional Vitals: Temp Pulse Resp BP Pulse Ox 98.2 F 64 16 108/75 94 05/21/18 11:24 05/21/18 11:24 05/21/18 11:24 05/21/18 11:24 05/21/18 11:24 General appearance: Present: cooperative, mild distress, A&O X 3, pleasant, no acute distress, answers questions appropriately - Head Head exam: Present: atraumatic, normal inspection, normocephalic - Eye Eye exam: Present: normal appearance, conjuntiva pink, sclera anicteric - Neck Neck exam general surgery: Present: supple, trachea midline. Absent: lymphadenopathy, tenderness - Respiratory Respiratory exam: Present: decreased breath sounds, CTAB. Absent: accessory muscle use, chest wall tenderness, rales, respiratory distress, rhonchi, wheezes - Cardiovascular Cardiovascular exam: Present: RRR, +S1, +S2. Absent: diastolic murmur, gallop, rubs, systolic murmur - GI/Abdominal GI/Abdominal exam: Present: normal bowel sounds, soft. Absent: distended, hepatomegaly, tenderness - Extremities Exam Extremities exam: Present: normal capillary refill, normal inspection, warm, radial pulses palpable and symmetrical. Absent: calf tenderness, cyanotic, pedal edema, tenderness - Neurological Exam Neurological exam: Present: alert, oriented X3, no focal deficits. Absent: facial droop, speech deficit - Skin Skin exam: Present: dry, intact, normal color, warm. Absent: rash - Patient Status Disposition: Home, Self-Care Condition: Good Functional capacity at discharge: independent ambulation Overall status at discharge: patient is progressing back to baseline - Discharge Instructions Follow Up With: Steph Garcia CNP [Primary Care Provider] - 05/26/18 3:00 pm Additional Instructions: Pt cleared via psychiatry for D/C home. Coordinate Mental health follow up prior to D/C home. Please see your PCP in the next 7-10 days. Return to the ER as needed for any other problems or concerns, or if your symptoms return or worsen. Take your medications as directed, your new prescriptions are at your pharmacy. Return to your normal diet and activities as tolerated. Return to work on 05/23. - Diet and Activity Activity: increase activity as tolerated Diet: advance to your usual diet
--- NOTE | 2018-05-22 07:21 | Electrocardiograph Report ---
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
== END 2018-05-21 16:49 | disposition home or self-care (01) ==
LOC: 3BNU
PROVIDERS: ADMIT Hospitalist; ATTEND Hospitalist